=== PATIENT | female | born 1955 | race Caucasian/White ===

== ENCOUNTER 2018-11-19 21:15 | Inpatient (IN) | payer MEDICARE ==
[~2018-11-19] VITALS: Ht 167.6 cm; Wt 45.4 kg
[2018-11-19] MEDS ORDERED: SODIUM CHLORIDE 0.9% 1L BAG IV* STA (23:24)
[2018-11-19] MEDS ORDERED: VANCOMYCIN 1 GM (PMX) 250 ML IVPB ONE (23:30)
[2018-11-19] MEDS ORDERED: CEFEPIME 1GM/50 ML (PMX) 50 ML IVPB ONE (23:30)
[2018-11-19] MEDS ORDERED: ALBUTEROL 0.083% (NEB) 2.5 MG/3 ML AMP HHN STA (23:32)
--- NOTE | 2018-11-19 23:38 | ERD ---
ER Documentation Chief Complaint Chief Complaint Low O2 saturation LENDING CONSULTANT, BIBA HPI Patient is a 63-year-old female with respiratory failure who presents with shortness of breath. The symptoms started a few days ago. She was brought in by ambulance. She has no fevers. She was discharged from [facility] today and went to [facility] where they found her to have a low O2 saturation. She is a chronic trach vent patient. Upon review of old medical records this is the patient's first visit to the emergency department. ROS All systems reviewed and are negative except as per history of present illness. Allergies Allergies: Coded Allergies: Sulfa (Sulfonamide Antibiotics) (Verified Allergy, Unknown, 11/19/18) ciprofloxacin (Verified Allergy, Unknown, 11/19/18) epinephrine (Verified Allergy, Unknown, 11/19/18) lidocaine (Verified Allergy, Unknown, 11/19/18) lorazepam (Verified Allergy, Unknown, 11/19/18) procaine (Verified Allergy, Unknown, 11/19/18) PMhx/Soc History of Surgery: Yes (R lung sx, G-tube) Anesthesia Reaction: No Hx Psychiatric Problems: Yes (Depression) Hx Alcohol Use: No Hx Substance Use: No Hx Tobacco Use: No Smoking Status: Never smoker FmHx Family History: No diabetes Physical Exam Vitals Vital Signs Date Temp Pulse Resp B/P (MAP) Pulse Ox O2 O2 Flow FiO2 Time Delivery Rate 11/19/18 109 16 90/61 (71) 100 Mechanical 23:04 Ventilator Trach Collar 11/19/18 97.3 122 22 93/60 (71) 100 21:25 Physical Exam Const: Chronically ill Head: Atraumatic Eyes: Normal Conjunctiva ENT: Tracheostomy in place Neck: Full range of motion. No meningismus. Resp: Rhonchorous breath sounds bilaterally Cardio: Regular rate and rhythm, no murmurs Abd: Soft, non tender, non distended. Normal bowel sounds Skin: No petechiae or rashes Back: No midline or flank tenderness Ext: No cyanosis, or edema Neur: Awake and alert Psych: Normal Mood and Affect Result Diagram: 11/19/18212811/19/182128 Results 24 hrs Laboratory Tests Test 11/19/18 21:28 11/19/18 21:29 11/19/18 21:40 Bedside Glucose 113 mg/dL White Blood Count 18.7 10^3/ul Red Blood Count 3.21 10^6/ul Hemoglobin 10.0 g/dl Hematocrit 35.5 % Mean Corpuscular Volume 110.6 fl Mean Corpuscular 31.2 pg Hemoglobin Mean Corpuscular 28.2 g/dl Hemoglobin Concent Red Cell Distribution 13.7 % Width Platelet Count 401 10^3/UL Mean Platelet Volume 9.9 fl Immature Granulocytes % 1.400 % Neutrophils % 89.8 % Lymphocytes % 3.9 % Monocytes % 3.2 % Eosinophils % 1.3 % Basophils % 0.4 % Nucleated Red Blood Cells 0.0 /100WBC % Immature Granulocytes # 0.270 10^3/ul Neutrophils # 16.8 10^3/ul Lymphocytes # 0.7 10^3/ul Monocytes # 0.6 10^3/ul Eosinophils # 0.2 10^3/ul Basophils # 0.1 10^3/ul Nucleated Red Blood Cells 0.0 10^3/ul # Prothrombin Time 14.9 Sec Prothrombin Time Ratio 1.2 INR International 1.16 Normalized Ratio Activated 41.7 Sec Partial Thromboplast Time Sodium Level 144 mmol/L Potassium Level 4.3 mmol/L Chloride Level 95 mmol/L Carbon Dioxide Level 45 mmol/L Anion Gap 4 Blood Urea Nitrogen 36 mg/dl Creatinine 0.66 mg/dl Est Glomerular Filtrat > 60 mL/min Rate mL/min Glucose Level 114 mg/dl POC Venous Lactate 0.9 mmol/L Calcium Level 9.6 mg/dl Total Bilirubin 0.2 mg/dl Direct Bilirubin 0.00 mg/dl Indirect Bilirubin 0.2 mg/dl Aspartate Amino 29 IU/L Transf (AST/SGOT) Alanine 27 IU/L Aminotransferase (ALT/SGPT ) Alkaline Phosphatase 188 IU/L Troponin I < 0.012 ng/ml Total Protein 7.6 g/dl Albumin 3.1 g/dl Globulin 4.50 g/dl Albumin/Globulin Ratio 0.68 Blood Gas Specimen Source Blood arterial Arterial Blood Date Drawn 11/19/2018 11:10:25 PM Arterial Blood pH 7.351 (Temp corrected) Arterial Blood pCO2 85.9 mmhg (Temp correct) Arterial Blood pO2 310.5 mmHG (Temp corrected) Arterial Blood HCO3 46.5 mmol/L Arterial Blood Base Excess 17.8 mmol/L Arterial Blood 99.8 mmHG Oxygen Saturation Jon Test N/A Arterial Blood Gas LB Puncture Site Arterial 0.3 % Blood Carboxyhemoglobin Arterial Blood 0.2 % Methemoglobin Blood Gas A-a O2 316.6 mmHg Differential Oxyhemoglobin Percent 99.3 % Blood Gas Temperature 37.0 C Blood Gas Respiration Rate 16.0 Blood Gas Actual 23 Respiration Rate Blood Gas Modality VENT - AC FiO2 100.0 % Blood Gas Tidal Volume 450.0 mL Blood Gas Low PEEP Setting 5.0 cmH2O Blood Gas Inspiratory 33.0 Pressure Blood Gas Critical Value Carlos SPRINGER MD Read Back Blood Gas Notified Whom KM Blood Gas Notified Time 11/12/2018 11:26:25 PM Current Medications Medications Dose Sig/Porsche Start Time Status Last (Trade) Ordered Route PRN Stop Time Admin Dose Reason Admin Vancomycin 250 ml @ ONCE ONCE 11/19/18 HCl 125 mls/hr IVPB 23:30 11/20/18 01:29 Cefepime HCl 50 ml @ ONCE ONCE 11/19/18 11/19/18 100 mls/hr IVPB 23:30 23:32 11/19/18 23:59 Sodium 1,950 ml BOLUS OVER 2 11/19/18 DC 11/19/18 Chloride HOURS STAT 23:24 23:32 (NS) IV* 11/19/18 23:25 Albuterol 5 mg ONCE STAT 11/19/18 DC (Proventil HHN 23:32 0.083% (Neb)) 11/19/18 23:33 Ipratropium 0.5 mg ONCE ONCE 11/20/18 [place] HHN 00:00 (Atrovent 11/20/18 00:01 0.02% (Neb)) Procedures/MDM Chest X-ray 1V Interpreted by me: Soft Tissue: No acute abnormalities Bones: No acute abnormalities Mediastinum/Cardiac Silhouette/Lungs: Pneumonia, loculated pneumothorax of the right upper lung EKG read by me: Rate/Rhythm: Regular rate and rhythm at a normal rate Intervals: Normal Impression: No evidence of ischemia or arrhythmia Sepsis Documentation: Patient's infectious symptoms have not stabilized and the patient is at risk of rapid decompensation. The patient will be admitted for careful hydration, antibiotic therapy, and infectious source control. SEVERE SEPSIS CRITERIA: Infectious source: Pneumonia End organ damage indicated by: No endorgan damage at this time SEPSIS MANAGEMENT Time of recognition of sepsis: 2128. Time of recognition of severe sepsis: No severe sepsis at this time. Time of recognition of septic shock: No septic shock at this time. 3 HOUR BUNDLE Blood cultures x 2 before broad-spectrum antibiotics: Yes 30 ml/kg NS bolus completed Initial lactate 0.9 Repeat lactate pending SEPTIC SHOCK ASSESSMENT: No lactic acid > 4.0 No persistent hypotension (SBP < 90 or 40 mmHg drop, MAP < 65) despite 30 mL/kg IV fluid bolus VOLUME REASSESSMENT FOR SEPTIC SHOCK: No septic shock at this time PERSISTENT HYPOTENSION TREATMENT: Comfort care no Central line not Required Vasopressor started not required I considered further perfusion assessment with CVP measurement, SCVO2, bedside ultrasound volume assessment, passive leg raise, trial of further fluid bolus. And proceeded with 30 ml/kg fluid bolus of NSS, broad spectrum antibiotics, and admission. The patient will be admitted to the care of Dr. Peraza to a telemetry bed. I think the risk of putting a chest tube and at this time outweigh the benefits as it is a loculated small right upper lobe pneumothorax and she has had previous surgery on the right lung and I am concerned for possible adhesions of the lung to the chest wall. CRITICAL CARE Critical care time 35 minutes Emergent fluid management while maintaining close respiratory support. Provision of immediate and broad-spectrum antibiotic therapy. Simultaneous assessment for possible sources in order to direct targeted therapy. Consideration for invasive and chemical support to prevent cardiopulmonary collapse. Critical care time is independent of procedures performed. Departure Diagnosis: Primary Impression: Sepsis Sepsis type: sepsis due to unspecified organism Qualified Codes: A41.9 - Sepsis, unspecified organism Additional Impressions: Pneumonia Pneumonia type: due to unspecified organism Laterality: unspecified laterality Lung location: unspecified part of lung Qualified Codes: J18.9 - Pneumonia, unspecified organism Pneumothorax Pneumothorax type: unspecified pneumothorax Qualified Codes: J93.9 - Pneumothorax, unspecified Condition: Serious LIBIA SPRINGER MD November 19, 2018 23:38
[2018-11-20] VITALS (7 sets, daily range): BP systolic 154–171; BP diastolic 82–90; PULSE 99–108; RESP 20–26; Ht 167.6 cm; Wt 45.4 kg
[2018-11-20] MEDS ORDERED: ACETAMINOPHEN 325 MG TAB PO PRN
[2018-11-20] MEDS ORDERED: IPRATROPIUM (NEB) 0.5 MG/2.5 ML AMP HHN ONE
[2018-11-20] MEDS ORDERED: DEXTROSE 5%-0.45% NACL 1,000 ML IV SCH (01:01)
[2018-11-20] MEDS ORDERED: VANCOMYCIN IV PER PHARMACY XX SCH (01:30)
[2018-11-20] MEDS ORDERED: ONDANSETRON 4 MG INJ IV PRN ×3 (01:30→16:30)
[2018-11-20] MEDS ORDERED: ACETAMINOPHEN 650 MG SUPP PR PRN (01:30)
[2018-11-20] MEDS ORDERED: NACL 0.9% 3 ML SYG IV SCH (01:30)
[2018-11-20] MEDS ORDERED: ACET12.5 PO (03:10)
[2018-11-20] MEDS ORDERED: BUDE0.5A INHALATION (03:10)
[2018-11-20] MEDS ORDERED: ACET325S GTB (03:10)
[2018-11-20] MEDS ORDERED: BUSP10TA2 GTB (03:10)
[2018-11-20] MEDS: ALBUTEROL/IPRATROPIUM (NEB) 3 ML AMP HHN PRN ×6 (03:18→21:58)
[2018-11-20] MEDS ORDERED: FER325 GTB (03:42)
[2018-11-20] MEDS ORDERED: SERT50TA6 GTB (03:42)
[2018-11-20] MEDS ORDERED: IPRA3AMP29 INHALATION (03:42)
[2018-11-20] MEDS ORDERED: GUAI-158 GTB (03:42)
[2018-11-20] MEDS ORDERED: MELA1TAB GTB (03:42)
[2018-11-20] MEDS ORDERED: MONT10TA24 GTB (03:42)
[2018-11-20] MEDS ORDERED: CHLO118L3 TOP (03:42)
[2018-11-20] MEDS ORDERED: METO10TA92 GTB (03:42)
[2018-11-20] MEDS ORDERED: ZNO30OI TOP (03:42)
[2018-11-20] MEDS ORDERED: GLYC1TAB GTB (03:42)
[2018-11-20] MEDS ORDERED: METO-448 GTB (03:42)
[2018-11-20] MEDS ORDERED: GABA-526 GTB (03:42)
[2018-11-20] MEDS ORDERED: MULTI GTB (03:42)
[2018-11-20] MEDS ORDERED: LANS30CA GTB (03:42)
[2018-11-20] MEDS ORDERED: SERT25TA83 GTB (03:42)
[2018-11-20] MEDS ORDERED: INSU100V3 IJ (03:49)
--- NOTE | 2018-11-20 06:59 | HP ---
Date/Time of Note Date/Time of Note DATE: 11/20/18 TIME: 06:53 Assessment/Plan VTE Prophylaxis Pharmacological prophylaxis: heparin Lines/Catheters IV Catheter Type (from Nrsg): Saline Lock Assessment/Plan Assessment/Plan 63-year-old female with history of hypertension, insulin-dependent diabetes, COPD, depression, lung surgery/VATS for pneumothorax a year ago, G-tube placement, trach/vent dependent brought to the ER from SNF for hypoxia, now awaiting admission for hypercapnic and hypoxic respiratory failure. 1. Vent dependent hypoxic and hypercapnic respiratory failure -Bronchodilators, IV antibiotic, continue Bumex -Obtain chest CT -Pulmonary consult -Repeat ABG -Obtain records from [facility] (patient was just discharged from there and was sent to SNF when she became hypoxic). Also obtain VATS record from year ago -Follow-up culture results -BuSpar for anxiety 2. Hypertension: Adjust antihypertensive as needed. Hold home metoprolol for now given BP on the lower side 3. Insulin-dependent diabetes: Continue insulin 4. Anxiety/depression: Continue BuSpar and sertraline 5. History of pneumothorax status post VATS a year ago. -Patient also with a history of COPD in the past -See #1 6. Status post G-tube: Starting feeding after chest CT Result Diagram: 11/20/18 0357 11/20/18 0356 Results 24hrs Laboratory Tests Test 11/19/18 21:28 11/19/18 21:29 11/19/18 21:40 11/19/18 23:57 Bedside Glucose 113 White Blood 18.7 H Count Red Blood Count 3.21 L Hemoglobin 10.0 L Hematocrit 35.5 L Mean Corpuscular 110.6 H Volume Mean Corpuscular 31.2 Hemoglobin Mean Corpuscular 28.2 L Hemoglobin Kareen nt Red Cell 13.7 Distribution Width Platelet Count 401 Mean Platelet 9.9 Volume Immature 1.400 H Granulocytes % Neutrophils % 89.8 H Lymphocytes % 3.9 L Monocytes % 3.2 Eosinophils % 1.3 Basophils % 0.4 Nucleated Red 0.0 Blood Cells % Immature 0.270 H Granulocytes # Neutrophils # 16.8 H Lymphocytes # 0.7 L Monocytes # 0.6 Eosinophils # 0.2 Basophils # 0.1 Nucleated Red 0.0 Blood Cells # Prothrombin Time 14.9 Prothrombin Time 1.2 Ratio INR 1.16 International Normalized Ratio Activated 41.7 H Partial Thrombop last Time Sodium Level 144 Potassium Level 4.3 Chloride Level 95 L Carbon Dioxide 45 *H Level Anion Gap 4 L Blood Urea 36 H Nitrogen Creatinine 0.66 Est Glomerular > 60 Filtrat Rate mL/min Glucose Level 114 POC Venous 0.9 Lactate Calcium Level 9.6 Total Bilirubin 0.2 Direct Bilirubin 0.00 Indirect 0.2 Bilirubin Aspartate Amino 29 Transf (AST/SGOT ) Alanine 27 Aminotransferase (ALT/SGPT) Alkaline 188 H Phosphatase Troponin I < 0.012 Total Protein 7.6 Albumin 3.1 L Globulin 4.50 H Albumin/Globulin 0.68 Ratio Blood Gas Blood arterial Specimen Source Arterial Blood 11/19/2018 11:10 Date Drawn :25 PM Arterial Blood 7.351 pH (Temp corrected) Arterial Blood 85.9 *H pCO2 (Temp correct) Arterial Blood 310.5 H pO2 (Temp corrected) Arterial Blood 46.5 *H HCO3 Arterial Blood 17.8 H Base Excess Arterial Blood 99.8 H Oxygen Saturatio n Jon Test N/A Arterial Blood LB Gas Puncture Site Arterial 0.3 Blood Carboxyhem oglobin Arterial Blood 0.2 Methemoglobin Blood Gas A-a O2 316.6 H Differential Oxyhemoglobin 99.3 H Percent Blood Gas 37.0 Temperature Blood Gas 16.0 Respiration Rate Blood Gas Actual 23 Respiration Rate Blood Gas VENT - AC Modality FiO2 100.0 Blood Gas Tidal 450.0 Volume Blood Gas Low 5.0 PEEP Setting Blood Gas 33.0 Inspiratory Pressure Blood Gas Carlos SPRINGER MD Critical Value Read Back Blood Gas KM Notified Whom Blood Gas 11/12/2018 11:26 Notified Time :25 PM Lactic Acid 0.6 Level Test 11/20/18 02:08 11/20/18 03:00 11/20/18 03:56 11/20/18 03:57 Urine Color YELLOW Urine Clarity CLOUDY A Urine pH 6.0 Urine Specific 1.016 [place] Urine Ketones NEGATIVE Urine Nitrite NEGATIVE Urine Bilirubin NEGATIVE Urine NEGATIVE Urobilinogen Urine Leukocyte 1+ H Esterase Urine 2 Microscopic RBC Urine 6 H Microscopic WBC Urine Squamous FEW Epithelial Cells Urine Amorphous FEW A Crystals Urine Bacteria FEW A Urine Hemoglobin NEGATIVE Urine Glucose NEGATIVE Urine Total 1+ H Protein Blood Gas Blood arterial Specimen Source Arterial Blood 11/20/2018 2:50: Date Drawn 11 AM Arterial Blood 7.322 L pH (Temp corrected) Arterial Blood 79.2 H pCO2 (Temp correct) Arterial Blood 102.1 H pO2 (Temp corrected) Arterial Blood 40.1 *H HCO3 Arterial Blood 11.8 H Base Excess Arterial Blood 97.6 Oxygen Saturatio n Jon Test N/A Arterial Blood LB Gas Puncture Site Arterial 0.6 Blood Carboxyhem oglobin Arterial Blood 0.3 Methemoglobin Blood Gas A-a O2 238.6 H Differential Oxyhemoglobin 96.7 Percent Blood Gas 37.0 Temperature Blood Gas 16.0 Respiration Rate Blood Gas Actual 22 Respiration Rate Blood Gas VENT - AC Modality FiO2 60.0 Blood Gas Tidal 450.0 Volume Blood Gas Low 5.0 PEEP Setting Blood Gas 33.0 Inspiratory Pressure Blood Gas Yoana BROWN MD Critical Value Read Back Blood Gas Notified Whom Blood Gas 11/20/2018 3:10: Notified Time 37 AM Sodium Level 147 H Potassium Level 4.1 Chloride Level 103 Carbon Dioxide 38 H Level Anion Gap 6 Blood Urea 32 H Nitrogen Creatinine 0.49 Est Glomerular > 60 Filtrat Rate mL/min Glucose Level 95 Hemoglobin A1c 4.8 Lactic Acid 0.6 Level Calcium Level 9.1 Magnesium Level 1.8 Total Bilirubin 0.2 Direct Bilirubin 0.00 Indirect 0.2 Bilirubin Aspartate Amino 24 Transf (AST/SGOT ) Alanine 34 Aminotransferase (ALT/SGPT) Alkaline 139 H Phosphatase Total Protein 6.6 # Albumin 2.7 L Globulin 3.90 H Albumin/Globulin 0.69 Ratio White Blood 12.6 #H Count Red Blood Count 2.70 L Hemoglobin 8.3 L Hematocrit 30.0 L Mean Corpuscular 111.1 H Volume Mean Corpuscular 30.7 Hemoglobin Mean Corpuscular 27.7 L Hemoglobin Kareen nt Red Cell 14.1 Distribution Width Platelet Count 361 Mean Platelet 10.1 Volume Immature 1.200 H Granulocytes % Neutrophils % 85.4 H Lymphocytes % 7.7 L Monocytes % 4.4 Eosinophils % 1.0 Basophils % 0.3 Nucleated Red 0.0 Blood Cells % Immature 0.150 H Granulocytes # Neutrophils # 10.8 H Lymphocytes # 1.0 Monocytes # 0.6 Eosinophils # 0.1 Basophils # 0.0 Nucleated Red 0.0 Blood Cells # HPI/ROS Admit Date/Time Admit Date/Time Hx of Present Illness This is a 63-year-old female with history of COPD, depression, lung surgery/VATS (per patient for pneumothorax), trach/vent dependent, G-tube placement who was brought to the ER from SNF for hypoxia. Patient just got discharged from [facility] and when she got to SNF she was found to be hypoxic. Per EMS, oxygen saturation in the low 80s. She was brought to the ER with BVM by EMS. In the ER, ABG on 100% FiO2 shows a pH of 7.35, PCO2 86, PO2 310, bicarb 46. Chest x-ray shows right medial/lower chest resection with lung herniation, right apical pneumothorax, possibly chronic, diffuse interstitial opacity. Patient had a breathing treatment and antibiotic and repeat ABG shows a slight improvement in PCO2. PO2 102, but on 60% FiO2 as supposed to 100%. Patient diana ears somewhat anxious. She answers questions appropriately, but requires reading her lips. She said that she had surgery for pneumothorax a year ago and has been trach dependent since. She also stated that [employer] is what works for her for anxiety PMH/Family/Social Past Medical History Medical History: other (See HPI) Medications Current Medications Ondansetron HCl (Zofran Inj) 4 mg ER BRIDGE PRN IV NAUSEA/VOMITING; Start 11/20/18 at 00:00; Stop 11/20/18 at 23:59 Acetaminophen (Tylenol Tab) 650 mg ER BRIDGE PRN PO .MILD PAIN 1-3 OR TEMP; Start 11/20/18 at 00:00; Stop 11/20/18 at 23:59 Dextrose/Sodium Chloride 1,000 ml @ 70 mls/hr [id number] IV ; Start 11/20/18 at 01:01; Stop 11/20/18 at 09:00 IV Flush (NS 3 ml) 3 ml PER PROTOCOL IV ; Start 11/20/18 at 01:30 Ondansetron HCl (Zofran Inj) 4 mg Q6H PRN IV NAUSEA/VOMITING; Start 11/20/18 at 01:30 Acetaminophen (Tylenol Supp) 650 mg Q6H PRN ND .PAIN 1-3 OR TEMP; Start 11/20/18 at 01:30 Heparin Sodium (Porcine) (Heparin (5000 Units/1ml)) 5,000 unit Q12 SC ; Start 11/20/18 at 09:00 Albuterol/ Ipratropium (Duoneb) 3 ml Q2H RESP THERAPY PRN HHN SHORTNESS OF BREATH Last administered on 11/20/18at 05:00; Admin Dose 3 ML; Start 11/20/18 at 01:30 Cefepime HCl 50 ml @ 100 mls/hr ONCE ONCE IVPB ; Start 11/20/18 at 09:00; Stop 11/20/18 at 09:29 Vancomycin HCl (Vanco Iv Per Pharmacy) VANCOMYCIN PER PHARMACY PER PROTOCOL XX ; Start 11/20/18 at 01:30 Vancomycin/Sodium Chloride 250 ml @ 125 mls/hr Q12H IVPB ; Start 11/20/18 at 11:00 Coded Allergies: Sulfa (Sulfonamide Antibiotics) (Verified Allergy, Unknown, 11/19/18) ciprofloxacin (Verified Allergy, Unknown, 11/19/18) epinephrine (Verified Allergy, Unknown, 11/19/18) lidocaine (Verified Allergy, Unknown, 11/19/18) lorazepam (Verified Allergy, Unknown, 11/19/18) procaine (Verified Allergy, Unknown, 11/19/18) Past Surgical History Past Surgical Hx: other (See HPI) Family History Significant Family History: no pertinent family hx Social History Alcohol Use: none Smoking Status: Former smoker Drug Use: none Exam/Review of Systems Vital Signs Vitals Vital Signs Date Temp Pulse Resp B/P (MAP) Pulse Ox O2 O2 Flow FiO2 Time Delivery Rate 11/20/18 98.1 117 18 94/49 (64) 100 Mechanical 06:30 Ventilator Trach Collar 11/20/18 100 05:01 Exam Constitutional: other (Patient appears slightly anxious. She is trached and chronic vent) Head: normocephalic, atraumatic Eyes: EOMI, PERRL Respiratory: diminished breath sounds Cardiovascular: other (Tachycardic regular rhythm) Gastrointestinal: soft, other (G-tube in place) Extremities: normal pulses DARNELL BROWN MD November 20, 2018 06:58
[2018-11-20] MEDS ORDERED: HEPARIN 5,000 UNIT/1 ML VIAL SC SCH (09:00)
[2018-11-20] MEDS ORDERED: DEXTROSE 50% 50 ML SYRINGE IV PRN ×2 (09:00)
[2018-11-20] MEDS ORDERED: SERTRALINE 50 MG TAB GTB SCH (09:00)
[2018-11-20] MEDS ORDERED: GLUCOSE GEL 15 GRAM TUBE PO PRN ×2 (09:00)
[2018-11-20] MEDS ORDERED: GLUCOSE GEL 15 GRAM TUBE BUCCAL PRN (09:00)
[2018-11-20] MEDS ORDERED: GLUCAGON 1 MG INJ IM PRN (09:00)
[2018-11-20] MEDS: BUDESONIDE (NEB) 0.5MG/2ML AMP INH SCH ×2 (09:00→20:01)
[2018-11-20] MEDS ORDERED: CEFEPIME 1GM/50 ML (PMX) 50 ML IVPB ONE (09:00)
[2018-11-20] MEDS: CEFEPIME 1GM/50 ML (PMX) 50 ML IVPB SCH ×2 (09:59→21:31)
[2018-11-20] MEDS: INSULIN ASPART [NOVOLOG] 3 ML PEN SC SCH ×2 (12:00→18:00)
[2018-11-20] MEDS: LANSOPRAZOLE 30 MG CAP GTB SCH (12:22)
[2018-11-20] MEDS: VANCOMYCIN 750 MG (PMX) 250 ML IVPB SCH ×2 (12:23→23:25)
[2018-11-20] MEDS: SOD CHLORIDE 0.9% 1,000 ML IV SCH ×2 (15:53→21:32)
--- NOTE | 2018-11-20 16:06 | PN ---
Date/Time of Note Date/Time of Note DATE: 11/20/18 TIME: 16:03 Assessment/Plan VTE Prophylaxis SCD contraindicated: low risk/ambulating Pharmacological prophylaxis: LMWH Lines/Catheters IV Catheter Type (from Nrs): Saline Lock Assessment/Plan Hospital Course Assessment and plan 1. Respiratory distress, atypical chest pain dyspnea, rule out pneumonia. 2. Vent dependent respiratory failure, mod stable continue vent 3. Recent pneumothorax status post VATS procedure, follow-up on old records 4. Chest wall wound, continue wound care follow-up on old records 5. Chronic COPD? 6. Past tobacco use? 7. Type 2 diabetes 8. Hypertension 9. Debility 10. Dysphagia 11. PEG tube status for malnutrition S: follows commands. shortness of breath. denies chest pain, fever, nausea/ vomiting. denies challenges with tube feeds. O: Vss; st Physical exam No pallor adenopathy JVD Regular tachycardic normal no murmur rub gallop diminished bs bilaterally Hypotonia no edema negative Homans Result Diagram: 11/20/18 0357 11/20/18 0356 Results 24hrs Laboratory Tests Test 11/19/18 21:28 11/19/18 21:29 11/19/18 21:40 11/19/18 23:57 Bedside Glucose 113 White Blood 18.7 H Count Red Blood Count 3.21 L Hemoglobin 10.0 L Hematocrit 35.5 L Mean Corpuscular 110.6 H Volume Mean Corpuscular 31.2 Hemoglobin Mean Corpuscular 28.2 L Hemoglobin Kareen nt Red Cell 13.7 Distribution Width Platelet Count 401 Mean Platelet 9.9 Volume Immature 1.400 H Granulocytes % Neutrophils % 89.8 H Lymphocytes % 3.9 L Monocytes % 3.2 Eosinophils % 1.3 Basophils % 0.4 Nucleated Red 0.0 Blood Cells % Immature 0.270 H Granulocytes # Neutrophils # 16.8 H Lymphocytes # 0.7 L Monocytes # 0.6 Eosinophils # 0.2 Basophils # 0.1 Nucleated Red 0.0 Blood Cells # Prothrombin Time 14.9 Prothrombin Time 1.2 Ratio INR 1.16 International Normalized Ratio Activated 41.7 H Partial Thrombop last Time Sodium Level 144 Potassium Level 4.3 Chloride Level 95 L Carbon Dioxide 45 *H Level Anion Gap 4 L Blood Urea 36 H Nitrogen Creatinine 0.66 Est Glomerular > 60 Filtrat Rate mL/min Glucose Level 114 POC Venous 0.9 Lactate Calcium Level 9.6 Total Bilirubin 0.2 Direct Bilirubin 0.00 Indirect 0.2 Bilirubin Aspartate Amino 29 Transf (AST/SGOT ) Alanine 27 Aminotransferase (ALT/SGPT) Alkaline 188 H Phosphatase Troponin I < 0.012 Total Protein 7.6 Albumin 3.1 L Globulin 4.50 H Albumin/Globulin 0.68 Ratio Blood Gas Blood arterial Specimen Source Arterial Blood 11/19/2018 11:10 Date Drawn :25 PM Arterial Blood 7.351 pH (Temp corrected) Arterial Blood 85.9 *H pCO2 (Temp correct) Arterial Blood 310.5 H pO2 (Temp corrected) Arterial Blood 46.5 *H HCO3 Arterial Blood 17.8 H Base Excess Arterial Blood 99.8 H Oxygen Saturatio n Jon Test N/A Arterial Blood LB Gas Puncture Site Arterial 0.3 Blood Carboxyhem oglobin Arterial Blood 0.2 Methemoglobin Blood Gas A-a O2 316.6 H Differential Oxyhemoglobin 99.3 H Percent Blood Gas 37.0 Temperature Blood Gas 16.0 Respiration Rate Blood Gas Actual 23 Respiration Rate Blood Gas VENT - AC Modality FiO2 100.0 Blood Gas Tidal 450.0 Volume Blood Gas Low 5.0 PEEP Setting Blood Gas 33.0 Inspiratory Pressure Blood Gas Carlos SPRINGER MD Critical Value Read Back Blood Gas Notified Whom Blood Gas 11/12/2018 11:26 Notified Time :25 PM Lactic Acid 0.6 Level Test 11/20/18 02:08 11/20/18 03:00 11/20/18 03:56 11/20/18 03:57 Urine Color YELLOW Urine Clarity CLOUDY A Urine pH 6.0 Urine Specific 1.016 [place] Urine Ketones NEGATIVE Urine Nitrite NEGATIVE Urine Bilirubin NEGATIVE Urine NEGATIVE Urobilinogen Urine Leukocyte 1+ H Esterase Urine 2 Microscopic RBC Urine 6 H Microscopic WBC Urine Squamous FEW Epithelial Cells Urine Amorphous FEW A Crystals Urine Bacteria FEW A Urine Hemoglobin NEGATIVE Urine Glucose NEGATIVE Urine Total 1+ H Protein Blood Gas Blood arterial Specimen Source Arterial Blood 11/20/2018 2:50: Date Drawn 11 AM Arterial Blood 7.322 L pH (Temp corrected) Arterial Blood 79.2 H pCO2 (Temp correct) Arterial Blood 102.1 H pO2 (Temp corrected) Arterial Blood 40.1 *H HCO3 Arterial Blood 11.8 H Base Excess Arterial Blood 97.6 Oxygen Saturatio n Jon Test N/A Arterial Blood LB Gas Puncture Site Arterial 0.6 Blood Carboxyhem oglobin Arterial Blood 0.3 Methemoglobin Blood Gas A-a O2 238.6 H Differential Oxyhemoglobin 96.7 Percent Blood Gas 37.0 Temperature Blood Gas 16.0 Respiration Rate Blood Gas Actual 22 Respiration Rate Blood Gas VENT - AC Modality FiO2 60.0 Blood Gas Tidal 450.0 Volume Blood Gas Low 5.0 PEEP Setting Blood Gas 33.0 Inspiratory Pressure Blood Gas Yoana BROWN MD Critical Value Read Back Blood Gas Notified Whom Blood Gas 11/20/2018 3:10: Notified Time 37 AM Sodium Level 147 H Potassium Level 4.1 Chloride Level 103 Carbon Dioxide 38 H Level Anion Gap 6 Blood Urea 32 H Nitrogen Creatinine 0.49 Est Glomerular > 60 Filtrat Rate mL/min Glucose Level 95 Hemoglobin A1c 4.8 Lactic Acid 0.6 Level Calcium Level 9.1 Magnesium Level 1.8 Total Bilirubin 0.2 Direct Bilirubin 0.00 Indirect 0.2 Bilirubin Aspartate Amino 24 Transf (AST/SGOT ) Alanine 34 Aminotransferase (ALT/SGPT) Alkaline 139 H Phosphatase Total Protein 6.6 # Albumin 2.7 L Globulin 3.90 H Albumin/Globulin 0.69 Ratio White Blood 12.6 #H Count Red Blood Count 2.70 L Hemoglobin 8.3 L Hematocrit 30.0 L Mean Corpuscular 111.1 H Volume Mean Corpuscular 30.7 Hemoglobin Mean Corpuscular 27.7 L Hemoglobin Kareen nt Red Cell 14.1 Distribution Width Platelet Count 361 Mean Platelet 10.1 Volume Immature 1.200 H Granulocytes % Neutrophils % 85.4 H Lymphocytes % 7.7 L Monocytes % 4.4 Eosinophils % 1.0 Basophils % 0.3 Nucleated Red 0.0 Blood Cells % Immature 0.150 H Granulocytes # Neutrophils # 10.8 H Lymphocytes # 1.0 Monocytes # 0.6 Eosinophils # 0.1 Basophils # 0.0 Nucleated Red 0.0 Blood Cells # Test 11/20/18 15:49 Bedside Glucose 113 Exam/Review of Systems Exam Vitals Vital Signs Date Temp Pulse Resp B/P (MAP) Pulse Ox O2 O2 Flow FiO2 Time Delivery Rate 11/20/18 95 20 98 50 14:45 11/20/18 119/74 Mechanical 10:45 (89) Ventilator Trach Collar 11/20/18 98.9 07:30 Results Results 24hrs Laboratory Tests Test 11/19/18 21:28 11/19/18 21:29 11/19/18 21:40 11/19/18 23:57 Bedside Glucose 113 White Blood 18.7 H Count Red Blood Count 3.21 L Hemoglobin 10.0 L Hematocrit 35.5 L Mean Corpuscular 110.6 H Volume Mean Corpuscular 31.2 Hemoglobin Mean Corpuscular 28.2 L Hemoglobin Kareen nt Red Cell 13.7 Distribution Width Platelet Count 401 Mean Platelet 9.9 Volume Immature 1.400 H Granulocytes % Neutrophils % 89.8 H Lymphocytes % 3.9 L Monocytes % 3.2 Eosinophils % 1.3 Basophils % 0.4 Nucleated Red 0.0 Blood Cells % Immature 0.270 H Granulocytes # Neutrophils # 16.8 H Lymphocytes # 0.7 L Monocytes # 0.6 Eosinophils # 0.2 Basophils # 0.1 Nucleated Red 0.0 Blood Cells # Prothrombin Time 14.9 Prothrombin Time 1.2 Ratio INR 1.16 International Normalized Ratio Activated 41.7 H Partial Thrombop last Time Sodium Level 144 Potassium Level 4.3 Chloride Level 95 L Carbon Dioxide 45 *H Level Anion Gap 4 L Blood Urea 36 H Nitrogen Creatinine 0.66 Est Glomerular > 60 Filtrat Rate mL/min Glucose Level 114 POC Venous 0.9 Lactate Calcium Level 9.6 Total Bilirubin 0.2 Direct Bilirubin 0.00 Indirect 0.2 Bilirubin Aspartate Amino 29 Transf (AST/SGOT ) Alanine 27 Aminotransferase (ALT/SGPT) Alkaline 188 H Phosphatase Troponin I < 0.012 Total Protein 7.6 Albumin 3.1 L Globulin 4.50 H Albumin/Globulin 0.68 Ratio Blood Gas Blood arterial Specimen Source Arterial Blood 11/19/2018 11:10 Date Drawn :25 PM Arterial Blood 7.351 pH (Temp corrected) Arterial Blood 85.9 *H pCO2 (Temp correct) Arterial Blood 310.5 H pO2 (Temp corrected) Arterial Blood 46.5 *H HCO3 Arterial Blood 17.8 H Base Excess Arterial Blood 99.8 H Oxygen Saturatio n Jon Test N/A Arterial Blood LB Gas Puncture Site Arterial 0.3 Blood Carboxyhem oglobin Arterial Blood 0.2 Methemoglobin Blood Gas A-a O2 316.6 H Differential Oxyhemoglobin 99.3 H Percent Blood Gas 37.0 Temperature Blood Gas 16.0 Respiration Rate Blood Gas Actual 23 Respiration Rate Blood Gas VENT - AC Modality FiO2 100.0 Blood Gas Tidal 450.0 Volume Blood Gas Low 5.0 PEEP Setting Blood Gas 33.0 Inspiratory Pressure Blood Gas Carlos SPRINGER MD Critical Value Read Back Blood Gas Notified Whom Blood Gas 11/12/2018 11:26 Notified Time :25 PM Lactic Acid 0.6 Level Test 11/20/18 02:08 11/20/18 03:00 11/20/18 03:56 11/20/18 03:57 Urine Color YELLOW Urine Clarity CLOUDY A Urine pH 6.0 Urine Specific 1.016 [place] Urine Ketones NEGATIVE Urine Nitrite NEGATIVE Urine Bilirubin NEGATIVE Urine NEGATIVE Urobilinogen Urine Leukocyte 1+ H Esterase Urine 2 Microscopic RBC Urine 6 H Microscopic WBC Urine Squamous FEW Epithelial Cells Urine Amorphous FEW A Crystals Urine Bacteria FEW A Urine Hemoglobin NEGATIVE Urine Glucose NEGATIVE Urine Total 1+ H Protein Blood Gas Blood arterial Specimen Source Arterial Blood 11/20/2018 2:50: Date Drawn 11 AM Arterial Blood 7.322 L pH (Temp corrected) Arterial Blood 79.2 H pCO2 (Temp correct) Arterial Blood 102.1 H pO2 (Temp corrected) Arterial Blood 40.1 *H HCO3 Arterial Blood 11.8 H Base Excess Arterial Blood 97.6 Oxygen Saturatio n Jon Test N/A Arterial Blood LB Gas Puncture Site Arterial 0.6 Blood Carboxyhem oglobin Arterial Blood 0.3 Methemoglobin Blood Gas A-a O2 238.6 H Differential Oxyhemoglobin 96.7 Percent Blood Gas 37.0 Temperature Blood Gas 16.0 Respiration Rate Blood Gas Actual 22 Respiration Rate Blood Gas VENT - AC Modality FiO2 60.0 Blood Gas Tidal 450.0 Volume Blood Gas Low 5.0 PEEP Setting Blood Gas 33.0 Inspiratory Pressure Blood Gas Yoana BROWN MD Critical Value Read Back Blood Gas Notified Whom Blood Gas 11/20/2018 3:10: Notified Time 37 AM Sodium Level 147 H Potassium Level 4.1 Chloride Level 103 Carbon Dioxide 38 H Level Anion Gap 6 Blood Urea 32 H Nitrogen Creatinine 0.49 Est Glomerular > 60 Filtrat Rate mL/min Glucose Level 95 Hemoglobin A1c 4.8 Lactic Acid 0.6 Level Calcium Level 9.1 Magnesium Level 1.8 Total Bilirubin 0.2 Direct Bilirubin 0.00 Indirect 0.2 Bilirubin Aspartate Amino 24 Transf (AST/SGOT ) Alanine 34 Aminotransferase (ALT/SGPT) Alkaline 139 H Phosphatase Total Protein 6.6 # Albumin 2.7 L Globulin 3.90 H Albumin/Globulin 0.69 Ratio White Blood 12.6 #H Count Red Blood Count 2.70 L Hemoglobin 8.3 L Hematocrit 30.0 L Mean Corpuscular 111.1 H Volume Mean Corpuscular 30.7 Hemoglobin Mean Corpuscular 27.7 L Hemoglobin Kareen nt Red Cell 14.1 Distribution Width Platelet Count 361 Mean Platelet 10.1 Volume Immature 1.200 H Granulocytes % Neutrophils % 85.4 H Lymphocytes % 7.7 L Monocytes % 4.4 Eosinophils % 1.0 Basophils % 0.3 Nucleated Red 0.0 Blood Cells % Immature 0.150 H Granulocytes # Neutrophils # 10.8 H Lymphocytes # 1.0 Monocytes # 0.6 Eosinophils # 0.1 Basophils # 0.0 Nucleated Red 0.0 Blood Cells # Test 11/20/18 15:49 Bedside Glucose 113 Medications Medication Current Medications Acetaminophen (Tylenol Tab) 650 mg ER BRIDGE PRN PO .MILD PAIN 1-3 OR TEMP; Start 11/20/18 at 00:00; Stop 11/20/18 at 23:59 IV Flush (NS 3 ml) 3 ml PER PROTOCOL IV ; Start 11/20/18 at 01:30 Ondansetron HCl (Zofran Inj) 4 mg Q6H PRN IV NAUSEA/VOMITING; Start 11/20/18 at 01:30 Acetaminophen (Tylenol Supp) 650 mg Q6H PRN [place] .PAIN 1-3 OR TEMP; Start 11/20/18 at 01:30 Heparin Sodium (Porcine) (Heparin (5000 Units/1ml)) 5,000 unit Q12 SC Last administered on 11/20/18at 09:57; Admin Dose 5,000 UNIT; Start 11/20/18 at 09:00 Albuterol/ Ipratropium (Duoneb) 3 ml Q2H RESP THERAPY PRN HHN SHORTNESS OF BREATH Last administered on 11/20/18at 15:28; Admin Dose 3 ML; Start 11/20/18 at 01:30 Vancomycin HCl (Vanco Iv Per Pharmacy) VANCOMYCIN PER PHARMACY PER PROTOCOL XX ; Start 11/20/18 at 01:30 Vancomycin/Sodium Chloride 250 ml @ 125 mls/hr Q12H IVPB Last administered on 11/20/18at 12:23; Admin Dose 125 MLS/HR; Start 11/20/18 at 11:00 Budesonide (Pulmicort (Neb)) 0.5 mg Q12 INH ; Start 11/20/18 at 09:00 Buspirone HCl (Buspar) 10 mg BID PRN GTB TID; Start 11/20/18 at 08:30 Lansoprazole (Prevacid) 30 mg DAILY@0600 GTB Last administered on 11/20/18at 12:22; Admin Dose 30 MG; Start 11/20/18 at 09:00 Sertraline HCl (Zoloft) 50 mg DAILY GTB Last administered on 11/20/18at 12:22; Admin Dose 50 MG; Start 11/20/18 at 09:00 Diagnostic Test (Pha) (Accu-Chek) 1 ea 02 XX ; Start 11/21/18 at 02:00 Insulin Aspart (Novolog Insulin Pen) NOVOLOG *MILD* ALGORI... Q6 SC ; Start 11/20/18 at 12:00 Cefepime HCl 50 ml @ 100 mls/hr Q12 IVPB Last administered on 11/20/18at 09:59; Admin Dose 100 MLS/HR; Start 11/20/18 at 09:00 Miscellaneous Information 1 ea NOTE XX ; Start 11/20/18 at 09:00 Glucose (Glutose) 15 gm Q15M PRN PO DECREASED GLUCOSE; Start 11/20/18 at 09:00 Glucose (Glutose) 22.5 gm Q15M PRN PO DECREASED GLUCOSE; Start 11/20/18 at 09:00 Dextrose (D50w Syringe) 25 ml Q15M PRN IV DECREASED GLUCOSE; Start 11/20/18 at 09:00 Dextrose (D50w Syringe) 50 ml Q15M PRN IV DECREASED GLUCOSE; Start 11/20/18 at 09:00 Glucagon (Glucagen) 1 mg Q15M PRN IM DECREASED GLUCOSE; Start 11/20/18 at 09:00 Glucose (Glutose) 15 gm Q15M PRN BUCCAL DECREASED GLUCOSE; Start 11/20/18 at 09:00 Sodium Chloride 1,000 ml @ 125 mls/hr Q8H IV Last administered on 11/20/18at 15:53; Admin Dose 125 MLS/HR; Start 11/20/18 at 13:00 Miscellaneous Information (*Rx Drug Level Order Reminder*) 1 1000 ONCE XX ; Start 11/21/18 at 10:00; Stop 11/21/18 at 10:01 MIRNA SOMMER MD November 20, 2018 16:06
[2018-11-20] MEDS ORDERED: LACTOBACILLUS RHAMNOSUS CAP PO ONE (16:30)
[2018-11-20] MEDS ORDERED: LORAZEPAM 2 MG INJ IV PRN (16:30)
[2018-11-20] MEDS ORDERED: GUAIFENESIN/DM 5ML CUP PO PRN (16:30)
[2018-11-20] MEDS: BUSPIRONE 10 MG TAB GTB PRN (17:23)
[2018-11-20] MEDS: MONTELUKAST 10 MG TAB GTB SCH (21:31)
[2018-11-20] MEDS: GABAPENTIN 300 MG CAP GTB SCH (21:31)
[2018-11-20] MEDS: GLYCOPYRROLATE 1 MG TAB GTB SCH (21:45)
[2018-11-21] VITALS (23 sets, daily range): BP systolic 94–162; BP diastolic 55–82; PULSE 73–113; RESP 17–23
[2018-11-21] MEDS ORDERED: HALOPERIDOL 5 MG INJ IM ONE (01:00)
[2018-11-21] MEDS: IPRATROPIUM (NEB) 0.5 MG/2.5 ML AMP HHN SCH ×4 (01:19→23:29)
[2018-11-21] MEDS: ACCU-CHEK XX SCH (02:00)
[2018-11-21] MEDS: ALBUTEROL/IPRATROPIUM (NEB) 3 ML AMP HHN PRN ×3 (04:24→21:59)
[2018-11-21] MEDS: INSULIN ASPART [NOVOLOG] 3 ML PEN SC SCH ×4 (06:00→17:35)
[2018-11-21] MEDS: SOD CHLORIDE 0.9% 1,000 ML IV SCH ×3 (07:25→22:15)
[2018-11-21] MEDS: LANSOPRAZOLE 30 MG CAP GTB SCH (07:26)
[2018-11-21] MEDS: CEFEPIME 1GM/50 ML (PMX) 50 ML IVPB SCH ×2 (08:44→21:09)
[2018-11-21] MEDS: BUDESONIDE (NEB) 0.5MG/2ML AMP INH SCH ×2 (08:46→20:27)
[2018-11-21] MEDS: GABAPENTIN 300 MG CAP GTB SCH ×2 (08:48→21:10)
[2018-11-21] MEDS: ZINC OXIDE 20% 30 GM OINT TOP SCH (08:48)
[2018-11-21] MEDS: GLYCOPYRROLATE 1 MG TAB GTB SCH ×2 (08:48→17:36)
[2018-11-21] MEDS: SERTRALINE 50 MG TAB GTB SCH (08:49)
--- NOTE | 2018-11-21 10:32 | CONS ---
Assessment/Plan Assessment/Plan Assessment/Plan (Daily) Ventilator setting; assist control of 14, tidal volume 500, PEEP of 5, 80% FiO2. CT chest as well as chest x-ray were reviewed. Assessment and recommendations; 1. Patient admitted with severe hypercapnic respiratory failure due to end- stage lung disease. 2. Status post extensive right VATS with severe volume loss and fibrotic and emphysematous changes. There is packing material placed in the right chest cavity. 3. Advanced encephalopathy. 4. VDRF. 5. History of diabetes and hypertension. Continue current supportive care. Wean down FiO2. Prognosis is very poor. Consultation Date/Type/Reason Admit Date/Time Date of Consultation: November 21, 2018 Type of Consult Pulmonary Patient is a 63-year-old male who has [facility] with [facility]emia. Patient has a history of right VATS surgery with severe volume loss on the right side. Patient also has advanced encephalopathy and was unresponsive at examination. Patient however did not appear to be in any distress. Past medical history; 1. History of VDRF 2. Tracheostomy and G-tube placement. 3. Extensive right VATS. 4. Severe COPD with bullous emphysema. 5. Pulmonary fibrosis. 6. Hypertension and diabetes. 7. Chronic anemia. Medications; reviewed. Allergies; as outlined above. Social history, family history, occupational history is not available. Review of system; unable to be obtained. General exam; elderly male, on ventilator via tracheostomy, unresponsive, currently in no distress. Date/Time of Note DATE: 11/21/18 TIME: 10:28 Past Medical History Medical History: other (See HPI) Home Meds Reported Medications Insulin Regular, Human (Humulin R) 100 Unit/1 Ml Vial, 0 IJ SS, VIAL IF BS>400,GIVE SCHEDULED INSULIN CALL PRESCRIBER, IF <70 SEE HYPOGLYCEMIA PROTOCOL: IF BS 71-150=0 unit 151-200= 2units; 201-250=4 units; 251-300=6units; 301-350= 8units; 351-400= 10units; 11/20/18 Zinc Oxide* (Zinc Oxide*) 20%-30GM Oint, 1 APPLIC TOP DAILY, TUB 11/20/18 Sertraline Hcl* (Sertraline Hcl*) 50 Mg Tablet, 50 MG GTB DAILY, #30 TAB 11/20/18 Sertraline Hcl* (Sertraline Hcl*) 25 Mg Tablet, 25 MG GTB DAILY, #30 TAB 11/20/18 Multivitamins* (Theragran*) 1 Tab Tab, 1 TAB GTB DAILY, TAB 11/20/18 Montelukast Sodium* (Montelukast Sodium*) 10 Mg Tablet, 10 MG GTB QHS, #30 TAB 11/20/18 Metoprolol Tartrate* (Lopressor*) 25 Mg Tab, 12.5 MG GTB TID, #60 TAB HOLD SBP<110 OR HR<60, 11/20/18 Metoclopramide* (Reglan*) 10 Mg Tablet, 10 MG GTB TID, TAB 11/20/18 Melatonin/Pyridoxine (Melatonin 5 mg Tablet) 1 Each Tablet, 1 EACH GTB, TAB 11/20/18 Lansoprazole* (Lansoprazole*) 30 Mg Capsule.dr, 30 MG GTB DAILY, CAP 11/20/18 Ipratropium-Albuterol (Ipratropium-Albuterol) 0.5-3 Mg/3 Ml Ampul.neb, 3 ML INHALATION Q6, #30 VIAL 11/20/18 Guaifenesin/Dextromethorphan* (Guaifenesin* DM) 1 Each Tablet, 1 TAB GTB Q12, TAB.SA 11/20/18 Glycopyrrolate* (Glycopyrrolate*) 1 Mg Tablet, 1 MG GTB BID WITH MEALS, TAB 11/20/18 Gabapentin* (Gabapentin*) 600 Mg Tablet, 600 MG GTB BID, #60 TAB 11/20/18 Ferrous Sulfate* (Ferrous Sulfate*) 325 Mg Tabec, 325 MG GTB TID, TAB 11/20/18 Chlorhexidine Gluconate* (Chlorhexidine Gluconate*) 118 Ml Liquid, 15 ML TOP Q12H, ML 11/20/18 Buspirone Hcl* (Buspirone Hcl*) 10 Mg Tab, 10 MG GTB BID PRN for TID, TAB 11/20/18 Budesonide* (Budesonide*) 0.5 Mg/2 Ml Ampul.neb, 0.5 MG INHALATION Q12, AMP 11/20/18 Acetaminophen-Codeine* (Acetaminophen-Codeine*) 300-30 Mg/12.5 Ml Solution, 12.5 ML PO Q4H PRN for PAIN, ML 11/20/18 Acetaminophen* (Acetaminophen* Susp) 325 Mg/10.15 Ml Solution, 650 MG GTB Q6H for FOR WOUND CARE, ML 11/20/18 Medications Current Medications IV Flush (NS 3 ml) 3 ml PER PROTOCOL IV ; Start 11/20/18 at 01:30 Acetaminophen (Tylenol Supp) 650 mg Q6H PRN [place] .PAIN 1-3 OR TEMP; Start 11/20/18 at 01:30 Albuterol/ Ipratropium (Duoneb) 3 ml Q2H RESP THERAPY PRN HHN SHORTNESS OF BREATH Last administered on 11/21/18at 04:24; Admin Dose 3 ML; Start 11/20/18 at 01:30 Vancomycin HCl (Vanco Iv Per Pharmacy) VANCOMYCIN PER PHARMACY PER PROTOCOL XX ; Start 11/20/18 at 01:30 Vancomycin/Sodium Chloride 250 ml @ 125 mls/hr Q12H IVPB Last administered on 11/20/18at 23:25; Admin Dose 125 MLS/HR; Start 11/20/18 at 11:00 Budesonide (Pulmicort (Neb)) 0.5 mg Q12 INH Last administered on 11/21/18at 08:46; Admin Dose 0.5 MG; Start 11/20/18 at 09:00 Buspirone HCl (Buspar) 10 mg BID PRN GTB TID Last administered on 11/20/18at 17:23; Admin Dose 10 MG; Start 11/20/18 at 08:30 Lansoprazole (Prevacid) 30 mg DAILY@0600 GTB Last administered on 11/21/18at 07:26; Admin Dose 30 MG; Start 11/20/18 at 09:00 Diagnostic Test (Pha) (Accu-Chek) 1 ea 02 XX ; Start 11/21/18 at 02:00 Insulin Aspart (Novolog Insulin Pen) NOVOLOG *MILD* ALGORI... Q6 SC ; Start 11/20/18 at 12:00 Cefepime HCl 50 ml @ 100 mls/hr Q12 IVPB Last administered on 11/21/18at 08:44; Admin Dose 100 MLS/HR; Start 11/20/18 at 09:00 Miscellaneous Information 1 ea NOTE XX ; Start 11/20/18 at 09:00 Glucose (Glutose) 15 gm Q15M PRN PO DECREASED GLUCOSE; Start 11/20/18 at 09:00 Glucose (Glutose) 22.5 gm Q15M PRN PO DECREASED GLUCOSE; Start 11/20/18 at 09:00 Dextrose (D50w Syringe) 25 ml Q15M PRN IV DECREASED GLUCOSE; Start 11/20/18 at 09:00 Dextrose (D50w Syringe) 50 ml Q15M PRN IV DECREASED GLUCOSE; Start 11/20/18 at 09:00 Glucagon (Glucagen) 1 mg Q15M PRN IM DECREASED GLUCOSE; Start 11/20/18 at 09:00 Glucose (Glutose) 15 gm Q15M PRN BUCCAL DECREASED GLUCOSE; Start 11/20/18 at 09:00 Sodium Chloride 1,000 ml @ 125 mls/hr Q8H IV Last administered on 11/21/18 07:25; Admin Dose 125 MLS/HR; Start 11/20/18 at 13:00 Ondansetron HCl (Zofran Inj) 4 mg Q4 PRN IV NAUSEA/VOMITING Last administered on 11/21/18 09:11; Admin Dose 4 MG; Start 11/20/18 at 16:30 Guaifenesin/ Dextromethorphan (Robitussin Dm Liquid Cup) 10 ml Q4 PRN PO COUGH; Start 11/20/18 at 16:30 Ipratropium Lillian (Atrovent 0.02% (Neb)) 0.5 mg Q8H RESP THERAPY HHN Last administered on 11/21/18 08:46; Admin Dose 0.5 MG; Start 11/21/18 at 00:00 Gabapentin (Neurontin) 600 mg BID GTB Last administered on 11/21/18 08:48; Admin Dose 600 MG; Start 11/20/18 at 21:00 Glycopyrrolate (Robinul) 1 mg BID WITH MEALS GTB Last administered on 11/21/18 08:48; Admin Dose 1 MG; Start 11/20/18 at 19:00 Montelukast Sodium (Singulair) 10 mg QHS GTB Last administered on 11/20/18 21:31; Admin Dose 10 MG; Start 11/20/18 at 21:00 Sertraline HCl (Zoloft) 25 mg DAILY GTB Last administered on 5/26/19at 08:49; Admin Dose 25 MG; Start 11/21/18 at 09:00 Zinc Oxide (Zinc Oxide Oint) 1 applic DAILY TOP Last administered on 11/21/18at 08:48; Admin Dose 1 APPLIC; Start 11/21/18 at 09:00 Allergies: Coded Allergies: Sulfa (Sulfonamide Antibiotics) (Verified Allergy, Unknown, 11/19/18) ciprofloxacin (Verified Allergy, Unknown, 11/19/18) epinephrine (Verified Allergy, Unknown, 11/19/18) lidocaine (Verified Allergy, Unknown, 11/19/18) lorazepam (Verified Allergy, Unknown, 11/19/18) procaine (Verified Allergy, Unknown, 11/19/18) Past Surgical History Past Surgical Hx: other (See HPI) Social History Alcohol Use: none Smoking Status: Heavy tobacco smoker Drug Use: none Exam/Review of Systems Exam Vitals Vital Signs Date Temp Pulse Resp B/P (MAP) Pulse Ox O2 O2 Flow FiO2 Time Delivery Rate 11/21/18 110 20 100 50 09:16 11/21/18 97.8 94/55 (68) 08:00 11/20/18 Ambu Bag 18:30 Mechanical Ventilator Trach Collar Intake and Output 11/20/18 11/20/18 11/21/18 1515:00 23:00 07:00 IntakeIntake Total 540 ml BalanceBalance 540 ml Exam H ENT exam; supple neck, no JVD. No lymphadenopathy. Midline trachea. Tracheostomy in place. Insertion site is clean. Patient has carious teeth. Chest exam; diminished breath sounds throughout. S1-S2 audible, no murmurs. Regular rhythm. Abdomen exam; soft, no organomegaly. G-tube in place. Bowel sounds audible. Extremity exam; no peripheral edema. Patient does have multiple flexion contractures. CURVE CLEANER exam; patient remains unresponsive. Results Result Diagram: 11/21/18 0511/21/18 05 Results 24hrs Laboratory Tests Test 11/20/18 15:49 11/20/18 21:29 11/21/18 05:20 11/21/18 07:13 Bedside Glucose 113 85 91 White Blood Count 11.1 H Red Blood Count 2.54 L Hemoglobin 7.8 L Hematocrit 27.7 L Mean Corpuscular 109.1 H Volume Mean Corpuscular 30.7 Hemoglobin Mean Corpuscular 28.2 L Hemoglobin Concent Red Cell 13.7 Distribution Width Platelet Count 371 Mean Platelet Volume 10.6 H Immature 0.700 H Granulocytes % Neutrophils % 85.2 H Lymphocytes % 7.6 L Monocytes % 4.9 Eosinophils % 1.2 Basophils % 0.4 Nucleated Red Blood 0.0 Cells % Immature 0.080 H Granulocytes # Neutrophils # 9.5 H Lymphocytes # 0.8 Monocytes # 0.6 Eosinophils # 0.1 Basophils # 0.1 Nucleated Red Blood 0.0 Cells # Prothrombin Time 15.3 H Prothrombin Time 1.2 Ratio INR International 1.20 Normalized Ratio Sodium Level 145 H Potassium Level 3.6 Chloride Level 104 Carbon Dioxide Level 39 H Anion Gap 2 L Blood Urea Nitrogen 33 H Creatinine 0.52 Est Glomerular > 60 Filtrat Rate mL/min Glucose Level 92 Hemoglobin A1c 5.1 Calcium Level 9.1 Phosphorus Level 3.1 Magnesium Level 1.8 Total Bilirubin 0.2 Direct Bilirubin 0.00 Indirect Bilirubin 0.2 Aspartate Amino 34 Transf (AST/SGOT) Alanine 30 Aminotransferase (AL T/SGPT) Alkaline Phosphatase 118 Troponin I < 0.012 Total Protein 6.0 L Albumin 2.6 L Globulin 3.40 H Albumin/Globulin 0.76 Ratio Vitamin B12 Level 884 Folate > 20.0 H Procalcitonin 0.32 H Thyroid Stimulating 1.080 Hormone (TSH) Medications Medication Current Medications IV Flush (NS 3 ml) 3 ml PER PROTOCOL IV ; Start 11/20/18 at 01:30 Acetaminophen (Tylenol Supp) 650 mg Q6H PRN [place] .PAIN 1-3 OR TEMP; Start 11/20/18 at 01:30 Albuterol/ Ipratropium (Duoneb) 3 ml Q2H RESP THERAPY PRN HHN SHORTNESS OF BREATH Last administered on 11/21/18at 04:24; Admin Dose 3 ML; Start 11/20/18 at 01:30 Vancomycin HCl (Vanco Iv Per Pharmacy) VANCOMYCIN PER PHARMACY PER PROTOCOL XX ; Start 11/20/18 at 01:30 Vancomycin/Sodium Chloride 250 ml @ 125 mls/hr Q12H IVPB Last administered on 11/20/18at 23:25; Admin Dose 125 MLS/HR; Start 11/20/18 at 11:00 Budesonide (Pulmicort (Neb)) 0.5 mg Q12 INH Last administered on 11/21/18at 08:46; Admin Dose 0.5 MG; Start 11/20/18 at 09:00 Buspirone HCl (Buspar) 10 mg BID PRN GTB TID Last administered on 11/20/18at 17:23; Admin Dose 10 MG; Start 11/20/18 at 08:30 Lansoprazole (Prevacid) 30 mg DAILY@0600 GTB Last administered on 11/21/18at 07:26; Admin Dose 30 MG; Start 11/20/18 at 09:00 Diagnostic Test (Pha) (Accu-Chek) 1 ea 02 XX ; Start 11/21/18 at 02:00 Insulin Aspart (Novolog Insulin Pen) NOVOLOG *MILD* ALGORI... Q6 SC ; Start 11/20/18 at 12:00 Cefepime HCl 50 ml @ 100 mls/hr Q12 IVPB Last administered on 11/21/18at 08:44; Admin Dose 100 MLS/HR; Start 11/20/18 at 09:00 Miscellaneous Information 1 ea NOTE XX ; Start 11/20/18 at 09:00 Glucose (Glutose) 15 gm Q15M PRN PO DECREASED GLUCOSE; Start 11/20/18 at 09:00 Glucose (Glutose) 22.5 gm Q15M PRN PO DECREASED GLUCOSE; Start 11/20/18 at 09:00 Dextrose (D50w Syringe) 25 ml Q15M PRN IV DECREASED GLUCOSE; Start 11/20/18 at 09:00 Dextrose (D50w Syringe) 50 ml Q15M PRN IV DECREASED GLUCOSE; Start 11/20/18 at 09:00 Glucagon (Glucagen) 1 mg Q15M PRN IM DECREASED GLUCOSE; Start 11/20/18 at 09:00 Glucose (Glutose) 15 gm Q15M PRN BUCCAL DECREASED GLUCOSE; Start 11/20/18 at 09:00 Sodium Chloride 1,000 ml @ 125 mls/hr Q8H IV Last administered on 11/21/18at 07:25; Admin Dose 125 MLS/HR; Start 11/20/18 at 13:00 Ondansetron HCl (Zofran Inj) 4 mg Q4 PRN IV NAUSEA/VOMITING Last administered on 11/21/18at 09:11; Admin Dose 4 MG; Start 11/20/18 at 16:30 Guaifenesin/ Dextromethorphan (Robitussin Dm Liquid Cup) 10 ml Q4 PRN PO COUGH; Start 11/20/18 at 16:30 Ipratropium Lillian (Atrovent 0.02% (Neb)) 0.5 mg Q8H RESP THERAPY HHN Last administered on 11/21/18 08:46; Admin Dose 0.5 MG; Start 11/21/18 at 00:00 Gabapentin (Neurontin) 600 mg BID GTB Last administered on 11/21/18 08:48; Admin Dose 600 MG; Start 11/20/18 at 21:00 Glycopyrrolate (Robinul) 1 mg BID WITH MEALS GTB Last administered on 11/21/18 08:48; Admin Dose 1 MG; Start 11/20/18 at 19:00 Montelukast Sodium (Singulair) 10 mg QHS GTB Last administered on 11/20/18 21:31; Admin Dose 10 MG; Start 11/20/18 at 21:00 Sertraline HCl (Zoloft) 25 mg DAILY GTB Last administered on 11/21/18 08:49; Admin Dose 25 MG; Start 11/21/18 at 09:00 Zinc Oxide (Zinc Oxide Oint) 1 applic DAILY TOP Last administered on 11/21/18 08:48; Admin Dose 1 APPLIC; Start 11/21/18 at 09:00 FRANK JURADO November 21, 2018 10:32
--- NOTE | 2018-11-21 10:59 | PN ---
Date/Time of Note Date/Time of Note DATE: 11/21/18 TIME: 10:53 Assessment/Plan VTE Prophylaxis Risk score (from Nsg)>0 risk: 5 SCD applied (from Nsg): Yes SCD contraindicated: low risk/ambulating Pharmacological prophylaxis: LMWH Lines/Catheters IV Catheter Type (from Nrs): Saline Lock Assessment/Plan Hospital Course Assessment and plan 1. Respiratory distress, atypical chest pain dyspnea, rule out pneumonia. multifactorial, stable consulted pulmonary. 2. Vent dependent respiratory failure, mod stable continue vent 3. Recent pneumothorax status post VATS procedure, follow-up on old records 4. Chest wall wound, continue wound care follow-up on old records 5. Chronic COPD? 6. Past tobacco use? 7. Type 2 diabetes 8. Hypertension 9. Debility 10. Dysphagia 11. PEG tube status for malnutrition 12. recent concern for pneumonia treated/finished antibiotics on the . 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 Open wound left chest wall continue wound care 15. Anxiety disorder refused benzo diazepam's. Consider behavioral health. S: 11/20 follows commands. shortness of breath. denies chest pain, fever, nausea/ vomiting. denies challenges with tube feeds. 11/21: incomplete data. 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 Underwent VATS surgery. Next had pneumothorax? Chest tube was placed. I think the next was dx w a bronchopleural fistula and underwent surgery debridement. Then transferred to [place] for rehab. Then transferred to [facility] locally. Just finished an antibiotic course at [facility]. O: Vss; st Physical exam No pallor adenopathy JVD Regular tachycardic normal no murmur rub gallop diminished bs bilaterally Hypotonia no edema negative Homans Result Diagram: 11/21/18 0520 11/21/18 0520 Results 24hrs Laboratory Tests Test 11/20/18 15:49 11/20/18 21:29 11/21/18 05:20 11/21/18 07:13 Bedside Glucose 113 85 91 White Blood Count 11.1 H Red Blood Count 2.54 L Hemoglobin 7.8 L Hematocrit 27.7 L Mean Corpuscular 109.1 H Volume Mean Corpuscular 30.7 Hemoglobin Mean Corpuscular 28.2 L Hemoglobin Concent Red Cell 13.7 Distribution Width Platelet Count 371 Mean Platelet Volume 10.6 H Immature 0.700 H Granulocytes % Neutrophils % 85.2 H Lymphocytes % 7.6 L Monocytes % 4.9 Eosinophils % 1.2 Basophils % 0.4 Nucleated Red Blood 0.0 Cells % Immature 0.080 H Granulocytes # Neutrophils # 9.5 H Lymphocytes # 0.8 Monocytes # 0.6 Eosinophils # 0.1 Basophils # 0.1 Nucleated Red Blood 0.0 Cells # Prothrombin Time 15.3 H Prothrombin Time 1.2 Ratio INR International 1.20 Normalized Ratio Sodium Level 145 H Potassium Level 3.6 Chloride Level 104 Carbon Dioxide Level 39 H Anion Gap 2 L Blood Urea Nitrogen 33 H Creatinine 0.52 Est Glomerular > 60 Filtrat Rate mL/min Glucose Level 92 Hemoglobin A1c 5.1 Calcium Level 9.1 Phosphorus Level 3.1 Magnesium Level 1.8 Total Bilirubin 0.2 Direct Bilirubin 0.00 Indirect Bilirubin 0.2 Aspartate Amino 34 Transf (AST/SGOT) Alanine 30 Aminotransferase (AL T/SGPT) Alkaline Phosphatase 118 Troponin I < 0.012 Total Protein 6.0 L Albumin 2.6 L Globulin 3.40 H Albumin/Globulin 0.76 Ratio Vitamin B12 Level 884 Folate > 20.0 H Procalcitonin 0.32 H Thyroid Stimulating 1.080 Hormone (TSH) Exam/Review of Systems Exam Vitals Vital Signs Date Temp Pulse Resp B/P (MAP) Pulse Ox O2 O2 Flow FiO2 Time Delivery Rate 11/21/18 110 20 100 50 09:16 11/21/18 97.8 94/55 (68) 08:00 11/20/18 Ambu Bag 18:30 Mechanical Ventilator Trach Collar Intake and Output 11/20/18 11/20/18 11/21/18 1515:00 23:00 07:00 IntakeIntake Total 540 ml BalanceBalance 540 ml Results Results 24hrs Laboratory Tests Test 11/20/18 15:49 11/20/18 21:29 11/21/18 05:20 11/21/18 07:13 Bedside Glucose 113 85 91 White Blood Count 11.1 H Red Blood Count 2.54 L Hemoglobin 7.8 L Hematocrit 27.7 L Mean Corpuscular 109.1 H Volume Mean Corpuscular 30.7 Hemoglobin Mean Corpuscular 28.2 L Hemoglobin Concent Red Cell 13.7 Distribution Width Platelet Count 371 Mean Platelet Volume 10.6 H Immature 0.700 H Granulocytes % Neutrophils % 85.2 H Lymphocytes % 7.6 L Monocytes % 4.9 Eosinophils % 1.2 Basophils % 0.4 Nucleated Red Blood 0.0 Cells % Immature 0.080 H Granulocytes # Neutrophils # 9.5 H Lymphocytes # 0.8 Monocytes # 0.6 Eosinophils # 0.1 Basophils # 0.1 Nucleated Red Blood 0.0 Cells # Prothrombin Time 15.3 H Prothrombin Time 1.2 Ratio INR International 1.20 Normalized Ratio Sodium Level 145 H Potassium Level 3.6 Chloride Level 104 Carbon Dioxide Level 39 H Anion Gap 2 L Blood Urea Nitrogen 33 H Creatinine 0.52 Est Glomerular > 60 Filtrat Rate mL/min Glucose Level 92 Hemoglobin A1c 5.1 Calcium Level 9.1 Phosphorus Level 3.1 Magnesium Level 1.8 Total Bilirubin 0.2 Direct Bilirubin 0.00 Indirect Bilirubin 0.2 Aspartate Amino 34 Transf (AST/SGOT) Alanine 30 Aminotransferase (AL T/SGPT) Alkaline Phosphatase 118 Troponin I < 0.012 Total Protein 6.0 L Albumin 2.6 L Globulin 3.40 H Albumin/Globulin 0.76 Ratio Vitamin B12 Level 884 Folate > 20.0 H Procalcitonin 0.32 H Thyroid Stimulating 1.080 Hormone (TSH) Medications Medication Current Medications IV Flush (NS 3 ml) 3 ml PER PROTOCOL IV ; Start 11/20/18 at 01:30 Acetaminophen (Tylenol Supp) 650 mg Q6H PRN [place] .PAIN 1-3 OR TEMP; Start 11/20/18 at 01:30 Albuterol/ Ipratropium (Duoneb) 3 ml Q2H RESP THERAPY PRN HHN SHORTNESS OF BREATH Last administered on 11/21/18at 04:24; Admin Dose 3 ML; Start 11/20/18 at 01:30 Vancomycin HCl (Vanco Iv Per Pharmacy) VANCOMYCIN PER PHARMACY PER PROTOCOL XX ; Start 11/20/18 at 01:30 Vancomycin/Sodium Chloride 250 ml @ 125 mls/hr Q12H IVPB Last administered on 11/20/18at 23:25; Admin Dose 125 MLS/HR; Start 11/20/18 at 11:00 Budesonide (Pulmicort (Neb)) 0.5 mg Q12 INH Last administered on 11/21/18at 08:46; Admin Dose 0.5 MG; Start 11/20/18 at 09:00 Buspirone HCl (Buspar) 10 mg BID PRN GTB TID Last administered on 11/20/18at 17:23; Admin Dose 10 MG; Start 11/20/18 at 08:30 Lansoprazole (Prevacid) 30 mg DAILY@0600 GTB Last administered on 11/21/18at 07:26; Admin Dose 30 MG; Start 11/20/18 at 09:00 Diagnostic Test (Pha) (Accu-Chek) 1 ea 02 XX ; Start 11/21/18 at 02:00 Insulin Aspart (Novolog Insulin Pen) NOVOLOG *MILD* ALGORI... Q6 SC ; Start 11/20/18 at 12:00 Cefepime HCl 50 ml @ 100 mls/hr Q12 IVPB Last administered on 11/21/18at 08:44; Admin Dose 100 MLS/HR; Start 11/20/18 at 09:00 Miscellaneous Information 1 ea NOTE XX ; Start 11/20/18 at 09:00 Glucose (Glutose) 15 gm Q15M PRN PO DECREASED GLUCOSE; Start 11/20/18 at 09:00 Glucose (Glutose) 22.5 gm Q15M PRN PO DECREASED GLUCOSE; Start 11/20/18 at 09:00 Dextrose (D50w Syringe) 25 ml Q15M PRN IV DECREASED GLUCOSE; Start 11/20/18 at 09:00 Dextrose (D50w Syringe) 50 ml Q15M PRN IV DECREASED GLUCOSE; Start 11/20/18 at 09:00 Glucagon (Glucagen) 1 mg Q15M PRN IM DECREASED GLUCOSE; Start 11/20/18 at 09:00 Glucose (Glutose) 15 gm Q15M PRN BUCCAL DECREASED GLUCOSE; Start 11/20/18 at 09:00 Sodium Chloride 1,000 ml @ 125 mls/hr Q8H IV Last administered on 11/21/18at 07:25; Admin Dose 125 MLS/HR; Start 11/20/18 at 13:00 Ondansetron HCl (Zofran Inj) 4 mg Q4 PRN IV NAUSEA/VOMITING Last administered on 11/21/18at 09:11; Admin Dose 4 MG; Start 11/20/18 at 16:30 Guaifenesin/ Dextromethorphan (Robitussin Dm Liquid Cup) 10 ml Q4 PRN PO COUGH; Start 11/20/18 at 16:30 Ipratropium Almo (Atrovent 0.02% (Neb)) 0.5 mg Q8H RESP THERAPY HHN Last administered on 11/21/18 08:46; Admin Dose 0.5 MG; Start 11/21/18 at 00:00 Gabapentin (Neurontin) 600 mg BID GTB Last administered on 11/21/18 08:48; Admin Dose 600 MG; Start 11/20/18 at 21:00 Glycopyrrolate (Robinul) 1 mg BID WITH MEALS GTB Last administered on 11/21/18 08:48; Admin Dose 1 MG; Start 11/20/18 at 19:00 Montelukast Sodium (Singulair) 10 mg QHS GTB Last administered on 11/20/18 21:31; Admin Dose 10 MG; Start 11/20/18 at 21:00 Sertraline HCl (Zoloft) 25 mg DAILY GTB Last administered on 11/21/18 08:49; Admin Dose 25 MG; Start 11/21/18 at 09:00 Zinc Oxide (Zinc Oxide Oint) 1 applic DAILY TOP Last administered on 11/21/18 08:48; Admin Dose 1 APPLIC; Start 11/21/18 at 09:00 MIRNA SOMMER MD November 21, 2018 10:59
[2018-11-21] MEDS: VANCOMYCIN 750 MG (PMX) 250 ML IVPB SCH ×2 (11:33→23:27)
[2018-11-21] MEDS: BUSPIRONE 10 MG TAB GTB PRN ×2 (12:05→21:10)
--- NOTE | 2018-11-21 19:23 | RADRPT ---
Echocardiogram Report Patient Name: AUBREE BOURNEPatient ID: [id number] : 1955 (63y 3m)Study Date: 11/21/2018 9:34:56 AM Gender: FAccession #: [id number] Tech: [facility] [place] Location: [facility] Ref.Physician: DARNELL BROWN Height(Cm): 157 BSA: 1.68Weight(Kg): 64.9 Quality: Technically Difficult StudyOrder Physician: DARNELL BROWN Account #: Procedures: Echocardiographic Report: Transthoracic echocardiogram examination. Indications: Congestive Heart Failure. Measurements: Doppler Measurement Value Normal Range AV Peak Bradford 1.5 [ 100.0 - 170.0 ] cm/sec AV Peak PG 9.0 [ 2.0 - 9.0 ] mmHg LVOT Peak Bradford 1.3 [ 70.0 - 110.0 ] cm/sec LVOT Peak PG 7.0 [ 2.0 - 6.0 ] mmHg MV E Peak Bradford 0.9 [ 60.0 - 130.0 ] cm/sec MV A Peak Bradford 1.3 [ 100.0 - 120.0 ] cm/sec MV E/A 0.8 [ 0.8 - 1.5 ] ratio MV PHT 38.0 [ 20.0 - 100.0 ] msec MV Decel Time 129 [ 104 - 258 ] msec MV Decel Jones 7 Lat E` Bradford 0.1 [ 10.0 - 15.0 ] cm/sec Lateral E/E` 8.5 [ 1.0 - 2.0 ] ratio Med E` Bradford 0.1 cm/sec MV E/A 0.8 [ 0.8 - 1.5 ] ratio MV PHT 38.0 [ 20.0 - 100.0 ] msec MVA PHT 5.8 [ 2.0 - 4.0 ] cm2 Findings: Left Ventricle: Normal left ventricular cavity size, wall thickness and systolic function. The left ventricular ejection fraction is visually estimated at 55-60 %. Right Ventricle: Normal right ventricular size. Normal right ventricular systolic function. Left Atrium: The left atrium is normal in size and appearance. Right Atrium: The right atrium is normal in size and appearance. Mitral Valve: Normal appearance of the mitral valve leaflets. Trace to mild mitral regurgitation. Aortic Valve: Normal appearance and function of the aortic valve to extent imaged in apical images only. No significant aortic stenosis or insufficiency. Tricuspid Valve: Normal appearance and function of the tricuspid valve with trace physiologic regurgitation. Pulmonic Valve: The pulmonic valve is not well visualized. Pericardium: Normal pericardium with no significant pericardial effusion. Aorta: Normal aortic root to extent imaged in apical views only. IVC: The inferior vena cava is not well visualized. Pulmonary Artery: Pulmonary artery is not well visualized. Conclusions: Normal left ventricular cavity size, wall thickness and systolic function. The left ventricular ejection fraction is visually estimated at 55-60 %. Normal appearance of the mitral valve leaflets. Trace to mild mitral regurgitation. Normal appearance and function of the tricuspid valve with trace physiologic regurgitation. Electronically Signed By: Roberto Stephenson 2018-11-21 19:22:36 PDT
[2018-11-21] MEDS: MONTELUKAST 10 MG TAB GTB SCH (21:10)
[2018-11-22] VITALS (22 sets, daily range): BP systolic 117–167; BP diastolic 55–81; PULSE 70–110; RESP 16–23
[2018-11-22] MEDS: ACCU-CHEK XX SCH (00:40)
[2018-11-22] MEDS: ALBUTEROL/IPRATROPIUM (NEB) 3 ML AMP HHN PRN (05:10)
[2018-11-22] MEDS: INSULIN ASPART [NOVOLOG] 3 ML PEN SC SCH ×5 (06:00→23:57)
[2018-11-22] MEDS: SOD CHLORIDE 0.9% 1,000 ML IV SCH ×2 (06:24→14:48)
[2018-11-22] MEDS: LANSOPRAZOLE 30 MG CAP GTB SCH (06:24)
[2018-11-22] MEDS: IPRATROPIUM (NEB) 0.5 MG/2.5 ML AMP HHN SCH ×3 (07:40→23:41)
[2018-11-22] MEDS: BUDESONIDE (NEB) 0.5MG/2ML AMP INH SCH ×2 (09:00→21:17)
[2018-11-22] MEDS: GLYCOPYRROLATE 1 MG TAB GTB SCH ×2 (09:12→18:45)
[2018-11-22] MEDS: CEFEPIME 1GM/50 ML (PMX) 50 ML IVPB SCH ×2 (09:12→21:55)
[2018-11-22] MEDS: SERTRALINE 50 MG TAB GTB SCH (09:13)
[2018-11-22] MEDS: METOPROLOL 25 MG TAB GTB SCH ×3 (09:13→21:57)
[2018-11-22] MEDS: GABAPENTIN 300 MG CAP GTB SCH ×2 (09:13→21:57)
[2018-11-22] MEDS: ENOXAPARIN 40 MG/0.4 ML SYG SC SCH (09:17)
[2018-11-22] MEDS: ZINC OXIDE 20% 30 GM OINT TOP SCH (09:48)
[2018-11-22] MEDS: VANCOMYCIN 500 MG (PMX) 100 ML IVPB SCH ×2 (11:48→23:52)
[2018-11-22] MEDS: BUSPIRONE 10 MG TAB GTB PRN ×2 (11:48→22:04)
--- NOTE | 2018-11-22 13:00 | CONS ---
Assessment/Plan Assessment/Plan Assessment/Plan (Daily) Ventilator setting; assist control of 20, tidal volume 450, PEEP of 5, 60% FiO2. Assessment recommendations; 1. Patient with history of VDRF with a history of right VATS due to pneumothorax complicated by failure of lung to reexpand status post chest wall cavity packing admitted for severe hypoxemia possibly due to some element of pneumonia. Patient currently on appropriate antimicrobial regimen with improving leukocytosis. 2. History of anxiety. 3. Chronic severe hypercapnic respiratory failure. 4. Right chest wound. Continue current supportive care. I did have a detailed discussion with the patient as well as her daughters at bedside. Wound consult evaluation is pending. Consultation Date/Type/Reason Admit Date/Time November 19, 2018 at 23:35 Initial Consult Date 11/21/18 Type of Consult Pulmonary Patient is a 63-year-old male who has been [facility] with hypoxemia. Patient has a history of right VATS surgery with severe volume loss on the right side. Patient also has advanced encephalopathy and was unresponsive at examination. Patient however did not appear to be in any distress. Past medical history; 1. History of VDRF 2. Tracheostomy and G-tube placement. 3. Extensive right VATS. 4. Severe COPD with bullous emphysema. 5. Pulmonary fibrosis. 6. Hypertension and diabetes. 7. Chronic anemia. Medications; reviewed. Allergies; as outlined above. Social history, family history, occupational history is not available. Review of system; unable to be obtained. General exam; elderly male, on ventilator via tracheostomy, unresponsive, currently in no distress. Date/Time of Note DATE: 11/22/18 TIME: 12:54 24 HR Interval Summary Free Text/Dictation Patient's condition is fairly stable. Patient has remained hemodynamically stable. General exam; elderly lady, on ventilator via tracheostomy, awake and alert. Appears mildly anxious. Currently no distress though. Exam/Review of Systems Exam Vitals Vital Signs Date Temp Pulse Resp B/P (MAP) Pulse Ox O2 O2 Flow FiO2 Time Delivery Rate 11/22/18 98.0 16 136/65 98 11:58 (88) 11/22/18 102 60 09:27 11/22/18 Mechanical 07:10 Ventilator Intake and Output 11/21/18 11/21/18 11/22/18 1515:00 23:00 07:00 IntakeIntake Total 1600 ml 1780 ml BalanceBalance 1600 ml 1780 ml Exam HEENT exam; supple neck, no JVD. No lymphadenopathy. Midline trachea. No thyromegaly. Tracheostomy in place. Insertion site is clean. Chest exam; diminished breath sounds throughout. Dressing applied to right lateral chest wall. S1-S2 audible, no murmurs. Abdomen exam; soft, nontender. No organomegaly. Bowel sounds are audible. Extremity exam; no peripheral edema clubbing. PRINT PRODUCTION MANAGER exam; no focal deficit. Results Result Diagram: 11/22/18 0634 11/22/18 0634 Results 24hrs Laboratory Tests Test 11/21/18 17:35 11/21/18 22:16 11/22/18 00:23 11/22/18 06:23 Bedside Glucose 99 95 104 Vancomycin Level 17.4 Trough Test 11/22/18 06:34 11/22/18 09:25 11/22/18 11:58 White Blood Count 11.1 H Red Blood Count 2.71 L Hemoglobin 8.4 L Hematocrit 29.4 L Mean Corpuscular 108.5 H Volume Mean Corpuscular 31.0 Hemoglobin Mean Corpuscular 28.6 L Hemoglobin Concent Red Cell 13.3 Distribution Width Platelet Count 347 Mean Platelet Volume 10.4 Immature 0.800 H Granulocytes % Neutrophils % 84.8 H Lymphocytes % 7.2 L Monocytes % 5.1 Eosinophils % 1.7 Basophils % 0.4 Nucleated Red Blood 0.0 Cells % Immature 0.090 H Granulocytes # Neutrophils # 9.4 H Lymphocytes # 0.8 Monocytes # 0.6 Eosinophils # 0.2 Basophils # 0.0 Nucleated Red Blood 0.0 Cells # Sodium Level 143 Potassium Level 3.6 Chloride Level 103 Carbon Dioxide Level 38 H Anion Gap 2 L Blood Urea Nitrogen 24 H Creatinine 0.48 Est Glomerular > 60 Filtrat Rate mL/min Glucose Level 98 Calcium Level 9.0 Phosphorus Level 3.2 Magnesium Level 1.7 Bedside Glucose 114 102 Medications Medication Current Medications IV Flush (NS 3 ml) 3 ml PER PROTOCOL IV ; Start 11/20/18 at 01:30 Acetaminophen (Tylenol Supp) 650 mg Q6H PRN [place] .PAIN 1-3 OR TEMP; Start 11/20/18 at 01:30 Albuterol/ Ipratropium (Duoneb) 3 ml Q2H RESP THERAPY PRN HHN SHORTNESS OF BREATH Last administered on 11/22/18at 05:10; Admin Dose 3 ML; Start 11/20/18 at 01:30 Vancomycin HCl (Vanco Iv Per Pharmacy) VANCOMYCIN PER PHARMACY PER PROTOCOL XX ; Start 11/20/18 at 01:30 Budesonide (Pulmicort (Neb)) 0.5 mg Q12 INH Last administered on 11/21/18at 20:27; Admin Dose 0.5 MG; Start 11/20/18 at 09:00 Buspirone HCl (Buspar) 10 mg BID PRN GTB TID Last administered on 11/22/18at 11:48; Admin Dose 10 MG; Start 11/20/18 at 08:30 Lansoprazole (Prevacid) 30 mg DAILY@0600 GTB Last administered on 11/22/18at 06:24; Admin Dose 30 MG; Start 11/20/18 at 09:00 Diagnostic Test (Pha) (Accu-Chek) 1 ea 02 XX ; Start 11/21/18 at 02:00 Insulin Aspart (Novolog Insulin Pen) NOVOLOG *MILD* ALGORI... Q6 SC ; Start 11/20/18 at 12:00 Cefepime HCl 50 ml @ 100 mls/hr Q12 IVPB Last administered on 11/22/18at 09:12; Admin Dose 100 MLS/HR; Start 11/20/18 at 09:00 Miscellaneous Information 1 ea NOTE XX ; Start 11/20/18 at 09:00 Glucose (Glutose) 15 gm Q15M PRN PO DECREASED GLUCOSE; Start 11/20/18 at 09:00 Glucose (Glutose) 22.5 gm Q15M PRN PO DECREASED GLUCOSE; Start 11/20/18 at 09:00 Dextrose (D50w Syringe) 25 ml Q15M PRN IV DECREASED GLUCOSE; Start 11/20/18 at 09:00 Dextrose (D50w Syringe) 50 ml Q15M PRN IV DECREASED GLUCOSE; Start 11/20/18 at 09:00 Glucagon (Glucagen) 1 mg Q15M PRN IM DECREASED GLUCOSE; Start 11/20/18 at 09:00 Glucose (Glutose) 15 gm Q15M PRN BUCCAL DECREASED GLUCOSE; Start 11/20/18 at 09:00 Sodium Chloride 1,000 ml @ 125 mls/hr Q8H IV Last administered on 11/21/18 22:15; Admin Dose 125 MLS/HR; Start 11/20/18 at 13:00 Ondansetron HCl (Zofran Inj) 4 mg Q4 PRN IV NAUSEA/VOMITING Last administered on 11/21/18 09:11; Admin Dose 4 MG; Start 11/20/18 at 16:30 Guaifenesin/ Dextromethorphan (Robitussin Dm Liquid Cup) 10 ml Q4 PRN PO COUGH; Start 11/20/18 at 16:30 Ipratropium [place] (Atrovent 0.02% (Neb)) 0.5 mg Q8H RESP THERAPY HHN Last administered on 11/22/18 07:40; Admin Dose 0.5 MG; Start 11/21/18 at 00:00 Gabapentin (Neurontin) 600 mg BID GTB Last administered on 11/22/18 09:13; Admin Dose 600 MG; Start 11/20/18 at 21:00 Glycopyrrolate (Robinul) 1 mg BID WITH MEALS GTB Last administered on 10/28 09:12; Admin Dose 1 MG; Start 11/20/18 at 19:00 Montelukast Sodium (Singulair) 10 mg QHS GTB Last administered on 11/21/18 21:10; Admin Dose 10 MG; Start 11/20/18 at 21:00 Sertraline HCl (Zoloft) 25 mg DAILY GTB Last administered on 11/22/18 09:13; Admin Dose 25 MG; Start 11/21/18 at 09:00 Zinc Oxide (Zinc Oxide Oint) 1 applic DAILY TOP Last administered on 11/22/18 09:48; Admin Dose 1 APPLIC; Start 11/21/18 at 09:00 Enoxaparin Sodium (Lovenox) 40 mg DAILY SC Last administered on 11/22/18 09:17; Admin Dose 40 MG; Start 11/22/18 at 09:00 Vancomycin HCl 100 ml @ 100 mls/hr Q12H IVPB Last administered on 11/22/18 11:48; Admin Dose 100 MLS/HR; Start 11/22/18 at 11:00 Metoprolol Tartrate (Lopressor) 12.5 mg TID GTB Last administered on 5/27/19at 09:13; Admin Dose 12.5 MG; Start 11/22/18 at 09:00 FRANK JURADO November 22, 2018 13:00
--- NOTE | 2018-11-22 14:44 | PN ---
Date/Time of Note Date/Time of Note DATE: 11/22/18 TIME: 14:33 Assessment/Plan VTE Prophylaxis Risk score (from Ns)>0 risk: 5 SCD applied (from Ns): Yes Pharmacological prophylaxis: LMWH Lines/Catheters IV C[facility]ter Type (from [facility]): Peripheral IV Assessment/Plan Assessment/Plan 1. Acute on chronic respiratory failure, vent dependent - Pulmonology on board and weaning FIO2 as tolerated. continue vent management - nebs PRN - continue antibiotics 2. h/o Recent pneumothorax status post VATS procedure 3. Chronic chest wall wound - wound care consulted 4. Chronic COPD - IV antibiotics and Nebs on board 5. Type 2 diabetes - A1c noted 6. Hypertension - stable 7. Dysphagia - speech to evaluation - tolerating clears - PEG in place and TF resumed - Nutrition consultation appreciated 8. Bronchopleural fistula sp surgery 9. Anxiety - refusing benzos 10. Disposition - Continue current care. noted with dark stool and FOBT ordered Result Diagram: 11/22/18 0634 11/22/18 0634 Results 24hrs Laboratory Tests Test 11/21/18 17:35 11/21/18 22:16 11/22/18 00:23 11/22/18 06:23 Bedside Glucose 99 95 104 Vancomycin Level 17.4 Trough Test 11/22/18 06:34 11/22/18 09:25 11/22/18 11:58 White Blood Count 11.1 H Red Blood Count 2.71 L Hemoglobin 8.4 L Hematocrit 29.4 L Mean Corpuscular 108.5 H Volume Mean Corpuscular 31.0 Hemoglobin Mean Corpuscular 28.6 L Hemoglobin Concent Red Cell 13.3 Distribution Width Platelet Count 347 Mean Platelet Volume 10.4 Immature 0.800 H Granulocytes % Neutrophils % 84.8 H Lymphocytes % 7.2 L Monocytes % 5.1 Eosinophils % 1.7 Basophils % 0.4 Nucleated Red Blood 0.0 Cells % Immature 0.090 H Granulocytes # Neutrophils # 9.4 H Lymphocytes # 0.8 Monocytes # 0.6 Eosinophils # 0.2 Basophils # 0.0 Nucleated Red Blood 0.0 Cells # Sodium Level 143 Potassium Level 3.6 Chloride Level 103 Carbon Dioxide Level 38 H Anion Gap 2 L Blood Urea Nitrogen 24 H Creatinine 0.48 Est Glomerular > 60 Filtrat Rate mL/min Glucose Level 98 Calcium Level 9.0 Phosphorus Level 3.2 Magnesium Level 1.7 Bedside Glucose 114 102 Subjective 24 Hr Interval Summary Free Text/Dictation Patient complaining of difficulty breathing this am and RT made aware. Maintaining saturations Exam/Review of Systems Exam Vitals Vital Signs Date Temp Pulse Resp B/P (MAP) Pulse Ox O2 O2 Flow FiO2 Time Delivery Rate 11/22/18 88 12:57 11/22/18 98.0 16 136/65 98 11:58 (88) 11/22/18 60 11:30 11/22/18 Mechanical 07:10 Ventilator Intake and Output 11/21/18 11/21/18 11/22/18 1515:00 23:00 07:00 IntakeIntake Total 1600 ml 1780 ml BalanceBalance 1600 ml 1780 ml Exam General: Patient is in mild respiratory distress. Mouthing responsive and answe ring appropriately Neck: Supple. trach in place Chest: Nontender, dressing right lateral chest wall Lungs: Clear to auscultation bilaterally, diminished, no wheezing or rhonchi Heart: Normal S1-S2, Regular rhythm and rate. No murmur, S3, or S4 Abdomen: Soft , nontender, nondistended , bowel sounds are present. No guarding no rebound tenderness Extremities: Normal to inspection, no edema no cyanosis Skin: no rashes or lesions Results Results 24hrs Laboratory Tests Test 11/21/18 17:35 11/21/18 22:16 11/22/18 00:23 11/22/18 06:23 Bedside Glucose 99 95 104 Vancomycin Level 17.4 Trough Test 11/22/18 06:34 11/22/18 09:25 11/22/18 11:58 White Blood Count 11.1 H Red Blood Count 2.71 L Hemoglobin 8.4 L Hematocrit 29.4 L Mean Corpuscular 108.5 H Volume Mean Corpuscular 31.0 Hemoglobin Mean Corpuscular 28.6 L Hemoglobin Concent Red Cell 13.3 Distribution Width Platelet Count 347 Mean Platelet Volume 10.4 Immature 0.800 H Granulocytes % Neutrophils % 84.8 H Lymphocytes % 7.2 L Monocytes % 5.1 Eosinophils % 1.7 Basophils % 0.4 Nucleated Red Blood 0.0 Cells % Immature 0.090 H Granulocytes # Neutrophils # 9.4 H Lymphocytes # 0.8 Monocytes # 0.6 Eosinophils # 0.2 Basophils # 0.0 Nucleated Red Blood 0.0 Cells # Sodium Level 143 Potassium Level 3.6 Chloride Level 103 Carbon Dioxide Level 38 H Anion Gap 2 L Blood Urea Nitrogen 24 H Creatinine 0.48 Est Glomerular > 60 Filtrat Rate mL/min Glucose Level 98 Calcium Level 9.0 Phosphorus Level 3.2 Magnesium Level 1.7 Bedside Glucose 114 102 Medications Medication Current Medications IV Flush (NS 3 ml) 3 ml PER PROTOCOL IV ; Start 11/20/18 at 01:30 Acetaminophen (Tylenol Supp) 650 mg Q6H PRN [place] .PAIN 1-3 OR TEMP; Start 11/20/18 at 01:30 Albuterol/ Ipratropium (Duoneb) 3 ml Q2H RESP THERAPY PRN HHN SHORTNESS OF BREATH Last administered on 11/22/18at 05:10; Admin Dose 3 ML; Start 11/20/18 at 01:30 Vancomycin HCl (Vanco Iv Per Pharmacy) VANCOMYCIN PER PHARMACY PER PROTOCOL XX ; Start 11/20/18 at 01:30 Budesonide (Pulmicort (Neb)) 0.5 mg Q12 INH Last administered on 11/21/18at 20:27; Admin Dose 0.5 MG; Start 11/20/18 at 09:00 Buspirone HCl (Buspar) 10 mg BID PRN GTB TID Last administered on 11/22/18at 11:48; Admin Dose 10 MG; Start 11/20/18 at 08:30 Lansoprazole (Prevacid) 30 mg DAILY@0600 GTB Last administered on 11/22/18at 06:24; Admin Dose 30 MG; Start 11/20/18 at 09:00 Diagnostic Test (Pha) (Accu-Chek) 1 ea 02 XX ; Start 11/21/18 at 02:00 Insulin Aspart (Novolog Insulin Pen) NOVOLOG *MILD* ALGORI... Q6 SC ; Start 11/20/18 at 12:00 Cefepime HCl 50 ml @ 100 mls/hr Q12 IVPB Last administered on 11/22/18at 09:12; Admin Dose 100 MLS/HR; Start 11/20/18 at 09:00 Miscellaneous Information 1 ea NOTE XX ; Start 11/20/18 at 09:00 Glucose (Glutose) 15 gm Q15M PRN PO DECREASED GLUCOSE; Start 11/20/18 at 09:00 Glucose (Glutose) 22.5 gm Q15M PRN PO DECREASED GLUCOSE; Start 11/20/18 at 09:00 Dextrose (D50w Syringe) 25 ml Q15M PRN IV DECREASED GLUCOSE; Start 11/20/18 at 09:00 Dextrose (D50w Syringe) 50 ml Q15M PRN IV DECREASED GLUCOSE; Start 11/20/18 at 09:00 Glucagon (Glucagen) 1 mg Q15M PRN IM DECREASED GLUCOSE; Start 11/20/18 at 09:00 Glucose (Glutose) 15 gm Q15M PRN BUCCAL DECREASED GLUCOSE; Start 11/20/18 at 09:00 Sodium Chloride 1,000 ml @ 125 mls/hr Q8H IV Last administered on 11/21/18at 22:15; Admin Dose 125 MLS/HR; Start 11/20/18 at 13:00 Ondansetron HCl (Zofran Inj) 4 mg Q4 PRN IV NAUSEA/VOMITING Last administered on 11/21/18at 09:11; Admin Dose 4 MG; Start 11/20/18 at 16:30 Guaifenesin/ Dextromethorphan (Robitussin Dm Liquid Cup) 10 ml Q4 PRN PO COUGH; Start 11/20/18 at 16:30 Ipratropium [place] (Atrovent 0.02% (Neb)) 0.5 mg Q8H RESP THERAPY HHN Last administered on 11/22/18at 07:40; Admin Dose 0.5 MG; Start 11/21/18 at 00:00 Gabapentin (Neurontin) 600 mg BID GTB Last administered on 11/22/18at 09:13; Admin Dose 600 MG; Start 11/20/18 at 21:00 Glycopyrrolate (Robinul) 1 mg BID WITH MEALS GTB Last administered on 11/22/18 09:12; Admin Dose 1 MG; Start 11/20/18 at 19:00 Montelukast Sodium (Singulair) 10 mg QHS GTB Last administered on 11/21/18at 21:10; Admin Dose 10 MG; Start 11/20/18 at 21:00 Sertraline HCl (Zoloft) 25 mg DAILY GTB Last administered on 11/22/18 09:13; Admin Dose 25 MG; Start 11/21/18 at 09:00 Zinc Oxide (Zinc Oxide Oint) 1 applic DAILY TOP Last administered on 11/22/18 09:48; Admin Dose 1 APPLIC; Start 11/21/18 at 09:00 Enoxaparin Sodium (Lovenox) 40 mg DAILY SC Last administered on 11/22/18 09:17; Admin Dose 40 MG; Start 11/22/18 at 09:00 Vancomycin HCl 100 ml @ 100 mls/hr Q12H IVPB Last administered on 11/22/18 11:48; Admin Dose 100 MLS/HR; Start 11/22/18 at 11:00 Metoprolol Tartrate (Lopressor) 12.5 mg TID GTB Last administered on 11/22/18 09:13; Admin Dose 12.5 MG; Start 11/22/18 at 09:00 ELOY GEE MD November 22, 2018 14:44
[2018-11-22] MEDS: MONTELUKAST 10 MG TAB GTB SCH (21:57)
[2018-11-23] VITALS (22 sets, daily range): BP systolic 133–160; BP diastolic 68–80; PULSE 74–100; RESP 16–23
[2018-11-23] MEDS: ACCU-CHEK XX SCH (02:00)
[2018-11-23] MEDS: SOD CHLORIDE 0.9% 1,000 ML IV SCH (03:51)
[2018-11-23] MEDS: ALBUTEROL/IPRATROPIUM (NEB) 3 ML AMP HHN PRN ×5 (04:16→20:03)
[2018-11-23] MEDS: INSULIN ASPART [NOVOLOG] 3 ML PEN SC SCH ×3 (06:00→17:09)
[2018-11-23] MEDS: LANSOPRAZOLE 30 MG CAP GTB SCH (06:09)
[2018-11-23] MEDS ORDERED: BUSPIRONE 10 MG TAB GTB PRN (07:00)
[2018-11-23] MEDS: IPRATROPIUM (NEB) 0.5 MG/2.5 ML AMP HHN SCH ×3 (07:38→23:27)
[2018-11-23] MEDS: GLYCOPYRROLATE 1 MG TAB GTB SCH ×2 (08:30→17:10)
[2018-11-23] MEDS: SERTRALINE 50 MG TAB GTB SCH (08:30)
[2018-11-23] MEDS: GABAPENTIN 300 MG CAP GTB SCH ×2 (08:31→20:59)
[2018-11-23] MEDS: METOPROLOL 25 MG TAB GTB SCH ×3 (08:31→20:59)
[2018-11-23] MEDS: ENOXAPARIN 40 MG/0.4 ML SYG SC SCH (08:33)
[2018-11-23] MEDS: ZINC OXIDE 20% 30 GM OINT TOP SCH (08:47)
[2018-11-23] MEDS: BUDESONIDE (NEB) 0.5MG/2ML AMP INH SCH ×2 (09:22→20:03)
--- NOTE | 2018-11-23 09:49 | CONS ---
Assessment/Plan Assessment/Plan Assessment/Plan (Daily) Ventilator setting; AC of 20, tidal volume 450, PEEP of 5, 60% FiO2. Assessment and recommendations; 1. Patient with history of VDRF status post right VATS in the past with extensive chest wall cavity packing due to failure of lung to reexpand admitted for possibly pneumonia with chronic hypercapnic and hypoxemic respiratory failure. 2. History of neuropathy. 3. Diabetes and hypertension. 4. Mild anemia. 5. Anxiety and depression. Continue current supportive care. Consultation Date/Type/Reason Admit Date/Time November 19, 2018 at 23:35 Initial Consult Date 11/21/18 Type of Consult Pulmonary Patient is a 63-year-old male who has been [facility] with [facility]emia. Patient has a history of right VATS surgery with severe volume loss on the right side. Patient also has advanced encephalopathy and was unresponsive at examination. Patient however did not appear to be in any distress. Past medical history; 1. History of VDRF 2. Tracheostomy and G-tube placement. 3. Extensive right VATS. 4. Severe COPD with bullous emphysema. 5. Pulmonary fibrosis. 6. Hypertension and diabetes. 7. Chronic anemia. Medications; reviewed. Allergies; as outlined above. Social history, family history, occupational history is not available. Review of system; unable to be obtained. General exam; elderly male, on ventilator via tracheostomy, unresponsive, currently in no distress. Date/Time of Note DATE: 11/23/18 TIME: 09:47 24 HR Interval Summary Free Text/Dictation Patient's condition is stable. Has remained hemodynamically stable. General exam; elderly woman, on ventilator via tracheostomy, awake and alert. Currently in no distress. Exam/Review of Systems Exam Vitals Vital Signs Date Temp Pulse Resp B/P (MAP) Pulse Ox O2 O2 Flow FiO2 Time Delivery Rate 11/23/18 62 20 100 60 09:27 11/23/18 97.9 133/77 07:34 (95) 11/22/18 Mechanical 15:44 Ventilator Intake and Output 11/22/18 11/22/18 11/23/18 1515:00 23:00 07:00 IntakeIntake Total 350 ml 730 ml BalanceBalance 350 ml 730 ml Exam H EENT exam; supple neck, no JVD. No lymphadenopathy. Midline trachea. No thyromegaly. Patient has fair dentition. Tracheostomy in place. Insertion site is clean. Chest exam; diminished breath sounds throughout. Packing applied to right lateral chest wall. S1-S2 audible, no murmurs. Abdomen exam; soft, no organomegaly. Bowel sounds audible. Extremity exam; no peripheral edema. [employer] exam; no focal motor deficit. Results Result Diagram: 11/23/18 0523 11/22/18 0634 Results 24hrs Laboratory Tests Test 11/22/18 11:58 11/22/18 22:30 11/22/18 23:49 11/23/18 05:23 Bedside Glucose 102 101 Stool Occult Blood NEGATIVE White Blood Count 14.3 #H Red Blood Count 2.73 L Hemoglobin 8.5 L Hematocrit 29.4 L Mean Corpuscular 107.7 H Volume Mean Corpuscular 31.1 Hemoglobin Mean Corpuscular 28.9 L Hemoglobin Concent Red Cell 13.1 Distribution Width Platelet Count 335 Mean Platelet Volume 10.1 Immature 0.700 H Granulocytes % Neutrophils % 88.9 H Lymphocytes % 5.2 L Monocytes % 4.1 Eosinophils % 0.8 Basophils % 0.3 Nucleated Red Blood 0.0 Cells % Immature 0.100 H Granulocytes # Neutrophils # 12.7 H Lymphocytes # 0.7 L Monocytes # 0.6 Eosinophils # 0.1 Basophils # 0.0 Nucleated Red Blood 0.0 Cells # Test 11/23/18 06:10 Bedside Glucose 104 Medications Medication Current Medications IV Flush (NS 3 ml) 3 ml PER PROTOCOL IV ; Start 11/20/18 at 01:30 Acetaminophen (Tylenol Supp) 650 mg Q6H PRN [place] .PAIN 1-3 OR TEMP; Start 11/20/18 at 01:30 Albuterol/ Ipratropium (Duoneb) 3 ml Q2H RESP THERAPY PRN HHN SHORTNESS OF BREATH Last administered on 11/23/18at 06:30; Admin Dose 3 ML; Start 11/20/18 at 01:30 Vancomycin HCl (Vanco Iv Per Pharmacy) VANCOMYCIN PER PHARMACY PER PROTOCOL XX ; Start 11/20/18 at 01:30 Budesonide (Pulmicort (Neb)) 0.5 mg Q12 INH Last administered on 11/23/18at 09:22; Admin Dose 0.5 MG; Start 11/20/18 at 09:00 Lansoprazole (Prevacid) 30 mg DAILY@0600 GTB Last administered on 11/23/18at 06:09; Admin Dose 30 MG; Start 11/20/18 at 09:00 Diagnostic Test (Pha) (Accu-Chek) 1 ea 02 XX ; Start 11/21/18 at 02:00 Insulin Aspart (Novolog Insulin Pen) NOVOLOG *MILD* ALGORI... Q6 SC ; Start 11/20/18 at 12:00 Cefepime HCl 50 ml @ 100 mls/hr Q12 IVPB Last administered on 11/22/18at 21:55; Admin Dose 100 MLS/HR; Start 11/20/18 at 09:00 Miscellaneous Information 1 ea NOTE XX ; Start 11/20/18 at 09:00 Glucose (Glutose) 15 gm Q15M PRN PO DECREASED GLUCOSE; Start 11/20/18 at 09:00 Glucose (Glutose) 22.5 gm Q15M PRN PO DECREASED GLUCOSE; Start 11/20/18 at 09:00 Dextrose (D50w Syringe) 25 ml Q15M PRN IV DECREASED GLUCOSE; Start 11/20/18 at 09:00 Dextrose (D50w Syringe) 50 ml Q15M PRN IV DECREASED GLUCOSE; Start 11/20/18 at 09:00 Glucagon (Glucagen) 1 mg Q15M PRN IM DECREASED GLUCOSE; Start 11/20/18 at 09:00 Glucose (Glutose) 15 gm Q15M PRN BUCCAL DECREASED GLUCOSE; Start 11/20/18 at 09:00 Sodium Chloride 1,000 ml @ 60 mls/hr [id number] IV Last administered on 11/22/18at 14:48; Admin Dose 60 MLS/HR; Start 11/20/18 at 13:00 Ondansetron HCl (Zofran Inj) 4 mg Q4 PRN IV NAUSEA/VOMITING Last administered on 11/21/18at 09:11; Admin Dose 4 MG; Start 11/20/18 at 16:30 Guaifenesin/ Dextromethorphan (Robitussin Dm Liquid Cup) 10 ml Q4 PRN PO COUGH; Start 11/20/18 at 16:30 Ipratropium [place] (Atrovent 0.02% (Neb)) 0.5 mg Q8H RESP THERAPY HHN Last administered on 11/23/18at 07:38; Admin Dose 0.5 MG; Start 11/21/18 at 00:00 Gabapentin (Neurontin) 600 mg BID GTB Last administered on 11/23/18 08:31; Admin Dose 600 MG; Start 11/20/18 at 21:00 Glycopyrrolate (Robinul) 1 mg BID WITH MEALS GTB Last administered on 11/23/18 08:30; Admin Dose 1 MG; Start 11/20/18 at 19:00 Montelukast Sodium (Singulair) 10 mg QHS GTB Last administered on 11/22/18 21:57; Admin Dose 10 MG; Start 11/20/18 at 21:00 Sertraline HCl (Zoloft) 25 mg DAILY GTB Last administered on 11/23/18 08:30; Admin Dose 25 MG; Start 11/21/18 at 09:00 Zinc Oxide (Zinc Oxide Oint) 1 applic DAILY TOP Last administered on 11/23/18 08:47; Admin Dose 1 APPLIC; Start 11/21/18 at 09:00 Enoxaparin Sodium (Lovenox) 40 mg DAILY SC Last administered on 11/23/18 08:33; Admin Dose 40 MG; Start 11/22/18 at 09:00 Vancomycin HCl 100 ml @ 100 mls/hr Q12H IVPB Last administered on 11/22/18 23:52; Admin Dose 100 MLS/HR; Start 11/22/18 at 11:00 Metoprolol Tartrate (Lopressor) 12.5 mg TID GTB Last administered on 11/23/18 08:31; Admin Dose 12.5 MG; Start 11/22/18 at 09:00 Buspirone HCl (Buspar) 10 mg TID PRN GTB ANXIETY Last administered on 11/23/18 07:03; Admin Dose 10 MG; Start 11/23/18 at 07:00 FRANK JURADO November 23, 2018 09:49
[2018-11-23] MEDS: CEFEPIME 1GM/50 ML (PMX) 50 ML IVPB SCH ×2 (09:52→20:59)
[2018-11-23] MEDS: VANCOMYCIN 500 MG (PMX) 100 ML IVPB SCH (10:50)
--- NOTE | 2018-11-23 10:57 | PN ---
Date/Time of Note Date/Time of Note DATE: 11/23/18 TIME: 10:57 Assessment/Plan VTE Prophylaxis Risk score (from Ns)>0 risk: 15 SCD applied (from Ns): Yes Pharmacological prophylaxis: LMWH Lines/Catheters IV Catheter Type (from Nrs): Peripheral IV Assessment/Plan Assessment/Plan 1. Acute on chronic respiratory failure, vent dependent - Pulmonology on board and weaning FIO2 as tolerated. continue vent management - nebs PRN - continue antibiotics 2. h/o recent pneumothorax status post VATS procedure 3. Chronic chest wall wound - wound care consulted 4. Chronic COPD - IV antibiotics and Nebs on board 5. Type 2 diabetes - A1c noted 6. Hypertension - stable 7. Dysphagia - speech evaluation appreciated - continue tube feeds and PO for oral gratification 8. Bronchopleural fistula s/p surgery 9. Anxiety - refusing benzos - will increase Buspar dose 10. Disposition - Continue current care per Pulm recommendations and awaiting [place] evaluation Result Diagram: 11/23/18 0523 11/22/18 0634 Results 24hrs Laboratory Tests Test 11/22/18 11:58 11/22/18 22:30 11/22/18 23:49 11/23/18 05:23 Bedside Glucose 102 101 Stool Occult Blood NEGATIVE White Blood Count 14.3 #H Red Blood Count 2.73 L Hemoglobin 8.5 L Hematocrit 29.4 L Mean Corpuscular 107.7 H Volume Mean Corpuscular 31.1 Hemoglobin Mean Corpuscular 28.9 L Hemoglobin Concent Red Cell 13.1 Distribution Width Platelet Count 335 Mean Platelet Volume 10.1 Immature 0.700 H Granulocytes % Neutrophils % 88.9 H Lymphocytes % 5.2 L Monocytes % 4.1 Eosinophils % 0.8 Basophils % 0.3 Nucleated Red Blood 0.0 Cells % Immature 0.100 H Granulocytes # Neutrophils # 12.7 H Lymphocytes # 0.7 L Monocytes # 0.6 Eosinophils # 0.1 Basophils # 0.0 Nucleated Red Blood 0.0 Cells # Test 11/23/18 06:10 Bedside Glucose 104 Subjective 24 Hr Interval Summary Free Text/Dictation Patient still complaining of shortness of breath but appears in no distress. Most likely component of anxiety. Exam/Review of Systems Exam Vitals Vital Signs Date Temp Pulse Resp B/P (MAP) Pulse Ox O2 O2 Flow FiO2 Time Delivery Rate 11/23/18 62 20 100 60 09:27 11/23/18 97.9 133/77 07:34 (95) 11/22/18 Mechanical 15:44 Ventilator Intake and Output 11/22/18 11/22/18 11/23/18 1515:00 23:00 07:00 IntakeIntake Total 350 ml 730 ml BalanceBalance 350 ml 730 ml Exam General: Patient appears comfortable but anxious Neck: Supple. trach in place Chest: Nontender, dressing right lateral chest wall Lungs: Clear to auscultation bilaterally, diminished, no wheezing or rhonchi Heart: Normal S1-S2, Regular rhythm and rate. No murmur, S3, or S4 Abdomen: Soft , nontender, nondistended , bowel sounds are present. No guarding no rebound tenderness Extremities: Normal to inspection, no edema no cyanosis Skin: no rashes or lesions Results Results 24hrs Laboratory Tests Test 11/22/18 11:58 11/22/18 22:30 11/22/18 23:49 11/23/18 05:23 Bedside Glucose 102 101 Stool Occult Blood NEGATIVE White Blood Count 14.3 #H Red Blood Count 2.73 L Hemoglobin 8.5 L Hematocrit 29.4 L Mean Corpuscular 107.7 H Volume Mean Corpuscular 31.1 Hemoglobin Mean Corpuscular 28.9 L Hemoglobin Concent Red Cell 13.1 Distribution Width Platelet Count 335 Mean Platelet Volume 10.1 Immature 0.700 H Granulocytes % Neutrophils % 88.9 H Lymphocytes % 5.2 L Monocytes % 4.1 Eosinophils % 0.8 Basophils % 0.3 Nucleated Red Blood 0.0 Cells % Immature 0.100 H Granulocytes # Neutrophils # 12.7 H Lymphocytes # 0.7 L Monocytes # 0.6 Eosinophils # 0.1 Basophils # 0.0 Nucleated Red Blood 0.0 Cells # Test 11/23/18 06:10 Bedside Glucose 104 Medications Medication Current Medications IV Flush (NS 3 ml) 3 ml PER PROTOCOL IV ; Start 11/20/18 at 01:30 Acetaminophen (Tylenol Supp) 650 mg Q6H PRN [place] .PAIN 1-3 OR TEMP; Start 11/20/18 at 01:30 Albuterol/ Ipratropium (Duoneb) 3 ml Q2H RESP THERAPY PRN HHN SHORTNESS OF BREATH Last administered on 11/23/18at 06:30; Admin Dose 3 ML; Start 11/20/18 at 01:30 Vancomycin HCl (Vanco Iv Per Pharmacy) VANCOMYCIN PER PHARMACY PER PROTOCOL XX ; Start 11/20/18 at 01:30 Budesonide (Pulmicort (Neb)) 0.5 mg Q12 INH Last administered on 11/23/18at 09:22; Admin Dose 0.5 MG; Start 11/20/18 at 09:00 Lansoprazole (Prevacid) 30 mg DAILY@0600 GTB Last administered on 11/23/18at 06:09; Admin Dose 30 MG; Start 11/20/18 at 09:00 Diagnostic Test (Pha) (Accu-Chek) 1 ea 02 XX ; Start 11/21/18 at 02:00 Insulin Aspart (Novolog Insulin Pen) NOVOLOG *MILD* ALGORI... Q6 SC ; Start 11/20/18 at 12:00 Cefepime HCl 50 ml @ 100 mls/hr Q12 IVPB Last administered on 11/23/18at 09:52; Admin Dose 100 MLS/HR; Start 11/20/18 at 09:00 Miscellaneous Information 1 ea NOTE XX ; Start 11/20/18 at 09:00 Glucose (Glutose) 15 gm Q15M PRN PO DECREASED GLUCOSE; Start 11/20/18 at 09:00 Glucose (Glutose) 22.5 gm Q15M PRN PO DECREASED GLUCOSE; Start 11/20/18 at 09:00 Dextrose (D50w Syringe) 25 ml Q15M PRN IV DECREASED GLUCOSE; Start 11/20/18 at 09:00 Dextrose (D50w Syringe) 50 ml Q15M PRN IV DECREASED GLUCOSE; Start 11/20/18 at 09:00 Glucagon (Glucagen) 1 mg Q15M PRN IM DECREASED GLUCOSE; Start 11/20/18 at 09:00 Glucose (Glutose) 15 gm Q15M PRN BUCCAL DECREASED GLUCOSE; Start 11/20/18 at 09:00 Sodium Chloride 1,000 ml @ 60 mls/hr [id number] IV Last administered on 11/22/18at 14:48; Admin Dose 60 MLS/HR; Start 11/20/18 at 13:00 Ondansetron HCl (Zofran Inj) 4 mg Q4 PRN IV NAUSEA/VOMITING Last administered on 5/26/19at 09:11; Admin Dose 4 MG; Start 11/20/18 at 16:30 Guaifenesin/ Dextromethorphan (Robitussin Dm Liquid Cup) 10 ml Q4 PRN PO COUGH; Start 11/20/18 at 16:30 Ipratropium [place] (Atrovent 0.02% (Neb)) 0.5 mg Q8H RESP THERAPY HHN Last administered on 11/23/18 07:38; Admin Dose 0.5 MG; Start 11/21/18 at 00:00 Gabapentin (Neurontin) 600 mg BID GTB Last administered on 11/23/18 08:31; Admin Dose 600 MG; Start 11/20/18 at 21:00 Glycopyrrolate (Robinul) 1 mg BID WITH MEALS GTB Last administered on 11/23/18 08:30; Admin Dose 1 MG; Start 11/20/18 at 19:00 Montelukast Sodium (Singulair) 10 mg QHS GTB Last administered on 11/22/18 21:57; Admin Dose 10 MG; Start 11/20/18 at 21:00 Sertraline HCl (Zoloft) 25 mg DAILY GTB Last administered on 11/23/18 08:30; Admin Dose 25 MG; Start 11/21/18 at 09:00 Zinc Oxide (Zinc Oxide Oint) 1 applic DAILY TOP Last administered on 11/23/18 08:47; Admin Dose 1 APPLIC; Start 11/21/18 at 09:00 Enoxaparin Sodium (Lovenox) 40 mg DAILY SC Last administered on 11/23/18 08:33; Admin Dose 40 MG; Start 11/22/18 at 09:00 Vancomycin HCl 100 ml @ 100 mls/hr Q12H IVPB Last administered on 11/23/18 10:50; Admin Dose 100 MLS/HR; Start 11/22/18 at 11:00 Metoprolol Tartrate (Lopressor) 12.5 mg TID GTB Last administered on 11/23/18 08:31; Admin Dose 12.5 MG; Start 11/22/18 at 09:00 Buspirone HCl (Buspar) 15 mg TID PRN GTB ANXIETY; Start 11/23/18 at 11:00 ELOY GEE MD November 23, 2018 10:57
[2018-11-23] MEDS: BUSPIRONE 10 MG TAB GTB PRN ×2 (14:33→22:44)
[2018-11-23] MEDS: MONTELUKAST 10 MG TAB GTB SCH (20:59)
[2018-11-24] VITALS (25 sets, daily range): BP systolic 112–187; BP diastolic 60–95; PULSE 69–103; RESP 17–24
[2018-11-24] MEDS: ALBUTEROL/IPRATROPIUM (NEB) 3 ML AMP HHN PRN ×2 (02:04→05:13)
[2018-11-24] MEDS: INSULIN ASPART [NOVOLOG] 3 ML PEN SC SCH ×4 (05:36→18:00)
[2018-11-24] MEDS: LANSOPRAZOLE 30 MG CAP GTB SCH (05:36)
[2018-11-24] MEDS: GABAPENTIN 300 MG CAP GTB SCH ×2 (08:28→20:45)
[2018-11-24] MEDS: METOPROLOL 25 MG TAB GTB SCH ×3 (08:29→20:45)
[2018-11-24] MEDS: SERTRALINE 50 MG TAB GTB SCH (08:30)
[2018-11-24] MEDS: GLYCOPYRROLATE 1 MG TAB GTB SCH ×2 (08:30→17:04)
[2018-11-24] MEDS: BUSPIRONE 10 MG TAB GTB PRN ×3 (08:30→23:18)
[2018-11-24] MEDS: CEFEPIME 1GM/50 ML (PMX) 50 ML IVPB SCH ×2 (08:41→20:46)
[2018-11-24] MEDS: BUDESONIDE (NEB) 0.5MG/2ML AMP INH SCH ×2 (08:42→20:03)
[2018-11-24] MEDS: IPRATROPIUM (NEB) 0.5 MG/2.5 ML AMP HHN SCH ×3 (08:42→23:27)
[2018-11-24] MEDS: ENOXAPARIN 40 MG/0.4 ML SYG SC SCH (08:51)
--- NOTE | 2018-11-24 10:17 | CONS ---
Assessment/Plan Assessment/Plan Assessment/Plan (Daily) Ventilator setting; AC of 20, tidal volume 450, PEEP of 5, 60% FiO2. Assessment and recommendations; 1. Patient with history of VDRF with history of pneumothorax complicated by failure of right lung to reexpand status post chest wall packing admitted for severe hypoxemia and hypercapnia. Possibly superimposed pneumonia, difficult to make out on a background of significant fibrotic lung disease. Patient however currently on appropriate medical antimicrobial regimen. 2. Underlying anxiety disorder. 3. History of COPD, peripheral neuropathy and hypertension. Continue current supportive care. Obtain follow-up ABG. Further recommendations once ABG is performed. Continue local wound care involving right chest. Consultation Date/Type/Reason Admit Date/Time November 19, 2018 at 23:35 Initial Consult Date 11/21/18 Type of Consult Pulmonary Patient is a 63-year-old male who has been [facility]. Patient has a history of right VATS surgery with severe volume loss on the right side. Patient also has advanced encephalopathy and was unresponsive at examination. Patient however did not appear to be in any distress. Past medical history; 1. History of VDRF 2. Tracheostomy and G-tube placement. 3. Extensive right VATS. 4. Severe COPD with bullous emphysema. 5. Pulmonary fibrosis. 6. Hypertension and diabetes. 7. Chronic anemia. Medications; reviewed. Allergies; as outlined above. Social history, family history, occupational history is not available. Review of system; unable to be obtained. General exam; elderly male, on ventilator via tracheostomy, unresponsive, currently in no distress. Date/Time of Note DATE: 11/24/18 TIME: 10:15 24 HR Interval Summary Free Text/Dictation Patient's condition is fairly stable. Has remained hemodynamically stable. Denies any shortness of breath at rest. General exam; elderly lady, on ventilator via tracheostomy, awake and alert. Currently in no distress. Exam/Review of Systems Exam Vitals Vital Signs Date Temp Pulse Resp B/P (MAP) Pulse Ox O2 O2 Flow FiO2 Time Delivery Rate 11/24/18 90 20 100 50 08:43 11/24/18 98.3 140/71 07:45 (94) 11/22/18 Mechanical 15:44 Ventilator Intake and Output 11/23/18 11/23/18 11/24/18 1515:00 23:00 07:00 IntakeIntake Total 760 ml 1220 ml BalanceBalance 760 ml 1220 ml Exam H ENT exam; supple neck, no JVD. No lymphadenopathy. Midline trachea. No thyromegaly. Tracheostomy placed. Patient has fair dentition. No neck masses. Chest exam; diminished breath sounds bilaterally. Dressing applied to right lateral chest wall. S1-S2 audible, no murmurs. Abdomen exam; soft, no organomegaly. Bowel sounds audible. Extremity exam; no peripheral edema clubbing. [employer] exam; no focal deficit. Results Result Diagram: 11/24/18 0527 11/22/18 0634 Results 24hrs Laboratory Tests Test 11/23/18 12:47 11/23/18 17:09 11/24/18 00:52 11/24/18 05:27 Bedside Glucose 114 105 99 White Blood Count 10.1 # Red Blood Count 2.76 L Hemoglobin 8.6 L Hematocrit 28.7 L Mean Corpuscular 104.0 H Volume Mean Corpuscular 31.2 Hemoglobin Mean Corpuscular 30.0 L Hemoglobin Concent Red Cell 13.2 Distribution Width Platelet Count 315 Mean Platelet Volume 10.4 Immature 0.600 H Granulocytes % Neutrophils % 84.4 H Lymphocytes % 9.1 L Monocytes % 4.8 Eosinophils % 0.9 Basophils % 0.2 Nucleated Red Blood 0.0 Cells % Immature 0.060 H Granulocytes # Neutrophils # 8.6 H Lymphocytes # 0.9 Monocytes # 0.5 Eosinophils # 0.1 Basophils # 0.0 Nucleated Red Blood 0.0 Cells # Test 11/24/18 05:35 Bedside Glucose 110 Medications Medication Current Medications IV Flush (NS 3 ml) 3 ml PER PROTOCOL IV ; Start 11/20/18 at 01:30 Acetaminophen (Tylenol Supp) [address] .PAIN 1-3 OR TEMP; Start 11/20/18 at 01:30 Albuterol/ Ipratropium (Duoneb) 3 ml Q2H RESP THERAPY PRN HHN SHORTNESS OF BREATH Last administered on 11/24/18at 05:13; Admin Dose 3 ML; Start 11/20/18 at 01:30 Budesonide (Pulmicort (Neb)) 0.5 mg Q12 INH Last administered on 11/24/18at 08:42; Admin Dose 0.5 MG; Start 11/20/18 at 09:00 Lansoprazole (Prevacid) 30 mg DAILY@0600 GTB Last administered on 11/24/18at 05:36; Admin Dose 30 MG; Start 11/20/18 at 09:00 Insulin Aspart (Novolog Insulin Pen) NOVOLOG *MILD* ALGORI... Q6 SC ; Start at 12:00 Cefepime HCl 50 ml @ 100 mls/hr Q12 IVPB Last administered on 11/24/18at 08:41; Admin Dose 100 MLS/HR; Start 11/20/18 at 09:00 Miscellaneous Information 1 ea NOTE XX ; Start 11/20/18 at 09:00 Glucose (Glutose) 15 gm Q15M PRN PO DECREASED GLUCOSE; Start 11/20/18 at 09:00 Glucose (Glutose) 22.5 gm Q15M PRN PO DECREASED GLUCOSE; Start 11/20/18 at 09:00 Dextrose (D50w Syringe) 25 ml Q15M PRN IV DECREASED GLUCOSE; Start 11/20/18 at 09:00 Dextrose (D50w Syringe) 50 ml Q15M PRN IV DECREASED GLUCOSE; Start 11/20/18 at 09:00 Glucagon (Glucagen) 1 mg Q15M PRN IM DECREASED GLUCOSE; Start 11/20/18 at 09:00 Glucose (Glutose) 15 gm Q15M PRN BUCCAL DECREASED GLUCOSE; Start 11/20/18 at 09:00 Ondansetron HCl (Zofran Inj) 4 mg Q4 PRN IV NAUSEA/VOMITING Last administered on 11/21/18at 09:11; Admin Dose 4 MG; Start 11/20/18 at 16:30 Guaifenesin/ Dextromethorphan (Robitussin Dm Liquid Cup) 10 ml Q4 PRN PO COUGH; Start 11/20/18 at 16:30 Ipratropium [place] (Atrovent 0.02% (Neb)) 0.5 mg Q8H RESP THERAPY HHN Last administered on 11/24/18at 08:42; Admin Dose 0.5 MG; Start 11/21/18 at 00:00 Gabapentin (Neurontin) 600 mg BID GTB Last administered on 11/24/18at 08:28; Admin Dose 600 MG; Start 11/20/18 at 21:00 Glycopyrrolate (Robinul) 1 mg BID WITH MEALS GTB Last administered on 08:30; Admin Dose 1 MG; Start 11/20/18 at 19:00 Montelukast Sodium (Singulair) 10 mg QHS GTB Last administered on 11/23/18 20:59; Admin Dose 10 MG; Start 11/20/18 at 21:00 Sertraline HCl (Zoloft) 25 mg DAILY GTB Last administered on 11/24/18 08:30; Admin Dose 25 MG; Start 11/21/18 at 09:00 Zinc Oxide (Zinc Oxide Oint) 1 applic DAILY TOP Last administered on 11/23/18 08:47; Admin Dose 1 APPLIC; Start 11/21/18 at 09:00 Enoxaparin Sodium (Lovenox) 40 mg DAILY SC Last administered on 11/24/18 08:51; Admin Dose 40 MG; Start 11/22/18 at 09:00 Metoprolol Tartrate (Lopressor) 12.5 mg TID GTB Last administered on 11/24/18 08:29; Admin Dose 12.5 MG; Start 11/22/18 at 09:00 Buspirone HCl (Buspar) 15 mg TID PRN GTB ANXIETY Last administered on 11/24/18 08:30; Admin Dose 15 MG; Start 11/23/18 at 11:00 FRANK JURADO November 24, 2018 10:17
[2018-11-24] MEDS: ZINC OXIDE 20% 30 GM OINT TOP SCH (10:27)
--- NOTE | 2018-11-24 11:34 | PN ---
Date/Time of Note Date/Time of Note DATE: 11/24/18 TIME: 11:34 Assessment/Plan VTE Prophylaxis Risk score (from Ns)>0 risk: 11 SCD applied (from Ns): Yes Pharmacological prophylaxis: LMWH Lines/Catheters IV Catheter Type (from Nrs): [place] Assessment/Plan Assessment/Plan 1. Acute on chronic respiratory failure, vent dependent - Pulmonology on board and weaning FIO2 as tolerated. continue vent management - nebs PRN - continue antibiotics - repeat ABG ordered 2. h/o recent pneumothorax status post VATS procedure 3. Chronic chest wall wound - wound care consulted 4. Chronic COPD - IV antibiotics and Nebs on board 5. Type 2 diabetes - A1c noted 6. Hypertension - stable 7. Dysphagia - speech evaluation appreciated - continue tube feeds 8. Bronchopleural fistula s/p surgery 9. Anxiety - refusing benzos - adjusted Buspar dose 10. Disposition - continue vent management per Pulm. Once stable, will d/c to SNF Result Diagram: 11/24/18 0527 11/22/18 0634 Results 24hrs Laboratory Tests Test 11/23/18 12:47 11/23/18 17:09 11/24/18 00:52 11/24/18 05:27 Bedside Glucose 114 105 99 White Blood Count 10.1 # Red Blood Count 2.76 L Hemoglobin 8.6 L Hematocrit 28.7 L Mean Corpuscular 104.0 H Volume Mean Corpuscular 31.2 Hemoglobin Mean Corpuscular 30.0 L Hemoglobin Concen t Red Cell 13.2 Distribution Width Platelet Count 315 Mean Platelet 10.4 Volume Immature 0.600 H Granulocytes % Neutrophils % 84.4 H Lymphocytes % 9.1 L Monocytes % 4.8 Eosinophils % 0.9 Basophils % 0.2 Nucleated Red 0.0 Blood Cells % Immature 0.060 H Granulocytes # Neutrophils # 8.6 H Lymphocytes # 0.9 Monocytes # 0.5 Eosinophils # 0.1 Basophils # 0.0 Nucleated Red 0.0 Blood Cells # Test 11/24/18 05:35 11/24/18 10:13 Bedside Glucose 110 Blood Gas Blood capillary Specimen Source Arterial Blood 11/24/2018 10:39: Date Drawn 19 AM Arterial Blood pH 7.447 (Temp corrected) Arterial Blood 65.0 H pCO2 (Temp correct) Arterial Blood 53.3 *L pO2 (Temp corrected) Arterial Blood 43.9 *H HCO3 Arterial Blood 17.4 H Base Excess Arterial Blood 88.4 L Oxygen Saturation Jon Test ACCEPTAB Arterial Blood Right Radial Gas Puncture Site Arterial 0.2 Blood Carboxyhemo globin Arterial Blood 0.1 Methemoglobin Blood Gas A-a O2 230.1 H Differential Oxyhemoglobin 88.1 L Percent Blood Gas 37.0 Temperature Blood Gas 20.0 Respiration Rate Blood Gas Actual 20 Respiration Rate Blood Gas VENT - AC Modality FiO2 50.0 Blood Gas Tidal 450.0 Volume Blood Gas Low 5.0 PEEP Setting Blood Gas TM Notified Whom Blood Gas 11/24/2018 10:54: Notified Time 49 AM Subjective 24 Hr Interval Summary Free Text/Dictation Patient still complaining of shortness of breath and discussed her anxiety playing a role in her SOB. Exam/Review of Systems Exam Vitals Vital Signs Date Temp Pulse Resp B/P (MAP) Pulse Ox O2 O2 Flow FiO2 Time Delivery Rate 11/24/18 50 09:15 11/24/18 90 20 100 08:43 11/24/18 98.3 140/71 07:45 (94) 11/22/18 Mechanical 15:44 Ventilator Intake and Output 11/23/18 11/23/18 11/24/18 1515:00 23:00 07:00 IntakeIntake Total 760 ml 1220 ml BalanceBalance 760 ml 1220 ml Exam General: Patient appears comfortable but anxious Neck: Supple. trach in place Chest: Nontender, dressing right lateral chest wall Lungs: Clear to auscultation bilaterally, diminished, no wheezing or rhonchi Heart: Normal S1-S2, Regular rhythm and rate. No murmur, S3, or S4 Abdomen: Soft , nontender, nondistended , bowel sounds are present. No guarding no rebound tenderness Extremities: Normal to inspection, no edema no cyanosis Skin: no rashes or lesions Results Results 24hrs Laboratory Tests Test 11/23/18 12:47 11/23/18 17:09 11/24/18 00:52 11/24/18 05:27 Bedside Glucose 114 105 99 White Blood Count 10.1 # Red Blood Count 2.76 L Hemoglobin 8.6 L Hematocrit 28.7 L Mean Corpuscular 104.0 H Volume Mean Corpuscular 31.2 Hemoglobin Mean Corpuscular 30.0 L Hemoglobin Concen t Red Cell 13.2 Distribution Width Platelet Count 315 Mean Platelet 10.4 Volume Immature 0.600 H Granulocytes % Neutrophils % 84.4 H Lymphocytes % 9.1 L Monocytes % 4.8 Eosinophils % 0.9 Basophils % 0.2 Nucleated Red 0.0 Blood Cells % Immature 0.060 H Granulocytes # Neutrophils # 8.6 H Lymphocytes # 0.9 Monocytes # 0.5 Eosinophils # 0.1 Basophils # 0.0 Nucleated Red 0.0 Blood Cells # Test 11/24/18 05:35 11/24/18 10:13 Bedside Glucose 110 Blood Gas Blood capillary Specimen Source Arterial Blood 11/24/2018 10:39: Date Drawn 19 AM Arterial Blood pH 7.447 (Temp corrected) Arterial Blood 65.0 H pCO2 (Temp correct) Arterial Blood 53.3 *L pO2 (Temp corrected) Arterial Blood 43.9 *H HCO3 Arterial Blood 17.4 H Base Excess Arterial Blood 88.4 L Oxygen Saturation Jon Test ACCEPTAB Arterial Blood Right Radial Gas Puncture Site Arterial 0.2 Blood Carboxyhemo globin Arterial Blood 0.1 Methemoglobin Blood Gas A-a O2 230.1 H Differential Oxyhemoglobin 88.1 L Percent Blood Gas 37.0 Temperature Blood Gas 20.0 Respiration Rate Blood Gas Actual 20 Respiration Rate Blood Gas VENT - AC Modality FiO2 50.0 Blood Gas Tidal 450.0 Volume Blood Gas Low 5.0 PEEP Setting Blood Gas TM Notified Whom Blood Gas 11/24/2018 10:54: Notified Time 49 AM Medications Medication Current Medications IV Flush (NS 3 ml) 3 ml PER PROTOCOL IV ; Start 11/20/18 at 01:30 Acetaminophen (Tylenol Supp) 650 mg Q6H PRN [place] .PAIN 1-3 OR TEMP; Start 11/20/18 at 01:30 Albuterol/ Ipratropium (Duoneb) 3 ml Q2H RESP THERAPY PRN HHN SHORTNESS OF BREATH Last administered on 11/24/18at 05:13; Admin Dose 3 ML; Start 11/20/18 at 01:30 Budesonide (Pulmicort (Neb)) 0.5 mg Q12 INH Last administered on 11/24/18at 08:42; Admin Dose 0.5 MG; Start 11/20/18 at 09:00 Lansoprazole (Prevacid) 30 mg DAILY@0600 GTB Last administered on 11/24/18at 05:36; Admin Dose 30 MG; Start 11/20/18 at 09:00 Insulin Aspart (Novolog Insulin Pen) NOVOLOG *MILD* ALGORI... Q6 SC ; Start 11/20/18 at 12:00 Cefepime HCl 50 ml @ 100 mls/hr Q12 IVPB Last administered on 11/24/18at 08:41; Admin Dose 100 MLS/HR; Start 11/20/18 at 09:00 Miscellaneous Information 1 ea NOTE XX ; Start 11/20/18 at 09:00 Glucose (Glutose) 15 gm Q15M PRN PO DECREASED GLUCOSE; Start 11/20/18 at 09:00 Glucose (Glutose) 22.5 gm Q15M PRN PO DECREASED GLUCOSE; Start 11/20/18 at 09:00 Dextrose (D50w Syringe) 25 ml Q15M PRN IV DECREASED GLUCOSE; Start 11/20/18 at 09:00 Dextrose (D50w Syringe) 50 ml Q15M PRN IV DECREASED GLUCOSE; Start 11/20/18 at 09:00 Glucagon (Glucagen) 1 mg Q15M PRN IM DECREASED GLUCOSE; Start 11/20/18 at 09:00 Glucose (Glutose) 15 gm Q15M PRN BUCCAL DECREASED GLUCOSE; Start 11/20/18 at 09:00 Ondansetron HCl (Zofran Inj) 4 mg Q4 PRN IV NAUSEA/VOMITING Last administered on 11/21/18at 09:11; Admin Dose 4 MG; Start 11/20/18 at 16:30 Guaifenesin/ Dextromethorphan (Robitussin Dm Liquid Cup) 10 ml Q4 PRN PO COUGH; Start 11/20/18 at 16:30 Ipratropium [place] (Atrovent 0.02% (Neb)) 0.5 mg Q8H RESP THERAPY HHN Last administered on 11/24/18at 08:42; Admin Dose 0.5 MG; Start 11/21/18 at 00:00 Gabapentin (Neurontin) 600 mg BID GTB Last administered on 11/24/18at 08:28; Admin Dose 600 MG; Start 11/20/18 at 21:00 Glycopyrrolate (Robinul) 1 mg BID WITH MEALS GTB Last administered on 11/24/18at 08:30; Admin Dose 1 MG; Start 5/25/19 at 19:00 Montelukast Sodium (Singulair) 10 mg QHS GTB Last administered on 11/23/18 20:59; Admin Dose 10 MG; Start 11/20/18 at 21:00 Sertraline HCl (Zoloft) 25 mg DAILY GTB Last administered on 11/24/18 08:30; Admin Dose 25 MG; Start 11/21/18 at 09:00 Zinc Oxide (Zinc Oxide Oint) 1 applic DAILY TOP Last administered on 11/24/18 10:27; Admin Dose 1 APPLIC; Start 11/21/18 at 09:00 Enoxaparin Sodium (Lovenox) 40 mg DAILY SC Last administered on 11/24/18 08:51; Admin Dose 40 MG; Start 11/22/18 at 09:00 Metoprolol Tartrate (Lopressor) 12.5 mg TID GTB Last administered on 11/24/18 08:29; Admin Dose 12.5 MG; Start 11/22/18 at 09:00 Buspirone HCl (Buspar) 15 mg TID PRN GTB ANXIETY Last administered on 11/24/18 08:30; Admin Dose 15 MG; Start 11/23/18 at 11:00 ELOY GEE MD November 24, 2018 11:34
[2018-11-24] MEDS: MONTELUKAST 10 MG TAB GTB SCH (20:45)
[2018-11-25] VITALS (24 sets, daily range): BP systolic 106–177; BP diastolic 61–85; PULSE 63–92; RESP 17–23
[2018-11-25] MEDS: ALBUTEROL/IPRATROPIUM (NEB) 3 ML AMP HHN PRN ×4 (04:01→21:22)
[2018-11-25] MEDS: LANSOPRAZOLE 30 MG CAP GTB SCH (05:47)
[2018-11-25] MEDS: INSULIN ASPART [NOVOLOG] 3 ML PEN SC SCH ×5 (05:49→23:55)
[2018-11-25] MEDS: BUSPIRONE 10 MG TAB GTB PRN ×3 (06:55→21:08)
[2018-11-25] MEDS: IPRATROPIUM (NEB) 0.5 MG/2.5 ML AMP HHN SCH ×3 (07:52→23:37)
[2018-11-25] MEDS: BUDESONIDE (NEB) 0.5MG/2ML AMP INH SCH ×2 (07:52→20:03)
[2018-11-25] MEDS: CEFEPIME 1GM/50 ML (PMX) 50 ML IVPB SCH ×2 (08:27→21:08)
[2018-11-25] MEDS: METOPROLOL 25 MG TAB GTB SCH ×3 (08:28→21:07)
[2018-11-25] MEDS: GLYCOPYRROLATE 1 MG TAB GTB SCH ×2 (08:29→17:42)
[2018-11-25] MEDS: SERTRALINE 50 MG TAB GTB SCH (08:29)
[2018-11-25] MEDS: ZINC OXIDE 20% 30 GM OINT TOP SCH (08:29)
[2018-11-25] MEDS: GABAPENTIN 300 MG CAP GTB SCH ×2 (08:29→21:07)
[2018-11-25] MEDS: ENOXAPARIN 40 MG/0.4 ML SYG SC SCH (08:46)
--- NOTE | 2018-11-25 11:01 | CONS ---
Assessment/Plan Assessment/Plan Assessment/Plan (Daily) Ventilator setting; AC of 20, tidal volume 450, PEEP of 5, 40% FiO2. Assessment and recommendations; 1. Patient with history of VDRF due to history of right pneumothorax complicated by failure of lung to reexpand status post chest wall packing admitted for severe hypoxemia with a history of severe hypercapnic respiratory failure as well. 2. Possibly superimposed pneumonia. Currently on appropriate and empiric antimicrobial regimen. 3. Underlying anxiety disorder. 4. Status post right VATS. Continue with supportive care. Increase FiO2 60%. Overall prognosis is guarded. Consultation Date/Type/Reason Admit Date/Time November 19, 2018 at 23:35 Initial Consult Date 11/21/18 Type of Consult Pulmonary Patient is a 63-year-old male who has been [facility] hospital [facility] with hypoxemia. Patient has a history of right VATS surgery with severe volume loss on the right side. Patient also has advanced encephalopathy and was unresponsive at examination. Patient however did not appear to be in any distress. Past medical history; 1. History of VDRF 2. Tracheostomy and G-tube placement. 3. Extensive right VATS. 4. Severe COPD with bullous emphysema. 5. Pulmonary fibrosis. 6. Hypertension and diabetes. 7. Chronic anemia. Medications; reviewed. Allergies; as outlined above. Social history, family history, occupational history is not available. Review of system; unable to be obtained. General exam; elderly male, on ventilator via tracheostomy, unresponsive, currently in no distress. Date/Time of Note DATE: 11/25/18 TIME: 10:58 24 HR Interval Summary Free Text/Dictation Patient's condition is stable. Has remained hemodynamically stable. General exam; elderly woman, on ventilator via tracheostomy, awake and alert. Currently in no distress. Exam/Review of Systems Exam Vitals Vital Signs Date Temp Pulse Resp B/P (MAP) Pulse Ox O2 O2 Flow FiO2 Time Delivery Rate 11/25/18 64 20 96 40 09:40 11/25/18 98.3 142/77 08:12 (98) 11/22/18 Mechanical 15:44 Ventilator Intake and Output 11/24/18 11/24/18 11/25/18 1515:00 23:00 07:00 IntakeIntake Total 750 ml 700 ml BalanceBalance 750 ml 700 ml Exam HEENT exam; supple neck, no JVD. No lymphadenopathy. Midline trachea. No thyromegaly. Patient has fair dentition. Tracheostomy in place. Insertion site is clean. Chest exam; diminished breath sounds throughout. S1-S2 audible, no murmurs. Dressing applied to right lateral chest wall. Abdomen exam; soft, nontender. No organomegaly. Nondistended. Bowel sounds audible. G-tube in place. Extremity exam; no peripheral edema. PATIENT NAVIGATOR exam; no focal deficit. Results Result Diagram: 11/25/18 0550 11/22/18 0634 Results 24hrs Laboratory Tests Test 11/24/18 12:00 11/25/18 00:08 11/25/18 05:49 11/25/18 05:50 Bedside Glucose 108 114 107 White Blood Count 12.3 #H Red Blood Count 3.00 L Hemoglobin 9.3 L Hematocrit 31.0 L Mean Corpuscular 103.3 H Volume Mean Corpuscular 31.0 Hemoglobin Mean Corpuscular 30.0 L Hemoglobin Concent Red Cell 13.3 Distribution Width Platelet Count 330 Mean Platelet Volume 10.3 Immature 0.900 H Granulocytes % Neutrophils % 85.7 H Lymphocytes % 7.1 L Monocytes % 4.5 Eosinophils % 1.5 Basophils % 0.3 Nucleated Red Blood 0.0 Cells % Immature 0.110 H Granulocytes # Neutrophils # 10.6 H Lymphocytes # 0.9 Monocytes # 0.6 Eosinophils # 0.2 Basophils # 0.0 Nucleated Red Blood 0.0 Cells # Medications Medication Current Medications IV Flush (NS 3 ml) 3 ml PER PROTOCOL IV ; Start 11/20/18 at 01:30 Acetaminophen (Tylenol Supp) 650 mg Q6H PRN NE .PAIN 1-3 OR TEMP; Start 9 at 01:30 Albuterol/ Ipratropium (Duoneb) 3 ml Q2H RESP THERAPY PRN HHN SHORTNESS OF BREATH Last administered on 11/25/18at 04:01; Admin Dose 3 ML; Start 11/20/18 at 01:30 Budesonide (Pulmicort (Neb)) 0.5 mg Q12 INH Last administered on 11/25/18at 07:52; Admin Dose 0.5 MG; Start 11/20/18 at 09:00 Lansoprazole (Prevacid) 30 mg DAILY@0600 GTB Last administered on 11/25/18at 05:47; Admin Dose 30 MG; Start 11/20/18 at 09:00 Insulin Aspart (Novolog Insulin Pen) NOVOLOG *MILD* ALGORI... Q6 SC ; Start 11/20/18 at 12:00 Cefepime HCl 50 ml @ 100 mls/hr Q12 IVPB Last administered on 11/25/18 08:27; Admin Dose 100 MLS/HR; Start 11/20/18 at 09:00 Miscellaneous Information 1 ea NOTE XX ; Start 11/20/18 at 09:00 Glucose (Glutose) 15 gm Q15M PRN PO DECREASED GLUCOSE; Start 11/20/18 at 09:00 Glucose (Glutose) 22.5 gm Q15M PRN PO DECREASED GLUCOSE; Start 11/20/18 at 09:00 Dextrose (D50w Syringe) 25 ml Q15M PRN IV DECREASED GLUCOSE; Start 11/20/18 at 09:00 Dextrose (D50w Syringe) 50 ml Q15M PRN IV DECREASED GLUCOSE; Start 11/20/18 at 09:00 Glucagon (Glucagen) 1 mg Q15M PRN IM DECREASED GLUCOSE; Start 11/20/18 at 09:00 Glucose (Glutose) 15 gm Q15M PRN BUCCAL DECREASED GLUCOSE; Start 11/20/18 at 09:00 Ondansetron HCl (Zofran Inj) 4 mg Q4 PRN IV NAUSEA/VOMITING Last administered on 11/21/18at 09:11; Admin Dose 4 MG; Start 11/20/18 at 16:30 Guaifenesin/ Dextromethorphan (Robitussin Dm Liquid Cup) 10 ml Q4 PRN PO COUGH; Start 11/20/18 at 16:30 Ipratropium [place] (Atrovent 0.02% (Neb)) 0.5 mg Q8H RESP THERAPY HHN Last administered on 11/25/18 07:52; Admin Dose 0.5 MG; Start 11/21/18 at 00:00 Gabapentin (Neurontin) 600 mg BID GTB Last administered on 11/25/18 08:29; Admin Dose 600 MG; Start 11/20/18 at 21:00 Glycopyrrolate (Robinul) 1 mg BID WITH MEALS GTB Last administered on 11/25/18 08:29; Admin Dose 1 MG; Start 11/20/18 at 19:00 Montelukast Sodium (Singulair) 10 mg QHS GTB Last administered on 11/24/18 20:45; Admin Dose 10 MG; Start 11/20/18 at 21:00 Sertraline HCl (Zoloft) 25 mg DAILY GTB Last administered on 11/25/18 08:29; Admin Dose 25 MG; Start 11/21/18 at 09:00 Zinc Oxide (Zinc Oxide Oint) 1 applic DAILY TOP Last administered on 11/25/18 08:29; Admin Dose 1 APPLIC; Start 11/21/18 at 09:00 Enoxaparin Sodium (Lovenox) 40 mg DAILY SC Last administered on 11/25/18 08:46; Admin Dose 40 MG; Start 11/22/18 at 09:00 Metoprolol Tartrate (Lopressor) 12.5 mg TID GTB Last administered on 11/25/18 08:28; Admin Dose 12.5 MG; Start 11/22/18 at 09:00 Buspirone HCl (Buspar) 15 mg TID PRN GTB ANXIETY Last administered on 11/25/18 06:55; Admin Dose 15 MG; Start 11/23/18 at 11:00 FRANK JURADO November 25, 2018 11:01
--- NOTE | 2018-11-25 16:02 | PN ---
Date/Time of Note Date/Time of Note DATE: 11/25/18 TIME: 15:56 Assessment/Plan VTE Prophylaxis Risk score (from Ns)>0 risk: 5 SCD applied (from Ns): Yes Pharmacological prophylaxis: LMWH Lines/Catheters IV [facility]from [facility] Saline Lock Assessment/Plan Assessment/Plan 1. Acute on chronic respiratory failure, vent dependent - Pulmonology on board and weaning FIO2 as tolerated. continue vent management. Will be accepted to SNF when FIO2 is at 40% - nebs PRN - continue antibiotics per Pulm recommendations 2. h/o recent pneumothorax status post VATS procedure 3. Chronic chest wall wound - wound care consultation appreciated 4. Chronic COPD - IV antibiotics and Nebs on board 5. Type 2 diabetes - A1c noted 6. Hypertension - stable 7. Dysphagia - speech evaluation appreciated - continue tube feeds 8. Bronchopleural fistula s/p surgery 9. Anxiety - refusing benzos - adjusted Buspar dose 10. Disposition - continue vent management per Pulm. Once at FIO2 40%, will d/c to SNF Result Diagram: 11/25/18 0550 11/22/18 0634 Results 24hrs Laboratory Tests Test 11/25/18 00:08 11/25/18 05:49 11/25/18 05:50 11/25/18 11:35 Bedside Glucose 114 107 114 White Blood Count 12.3 #H Red Blood Count 3.00 L Hemoglobin 9.3 L Hematocrit 31.0 L Mean Corpuscular 103.3 H Volume Mean Corpuscular 31.0 Hemoglobin Mean Corpuscular 30.0 L Hemoglobin Concent Red Cell 13.3 Distribution Width Platelet Count 330 Mean Platelet Volume 10.3 Immature 0.900 H Granulocytes % Neutrophils % 85.7 H Lymphocytes % 7.1 L Monocytes % 4.5 Eosinophils % 1.5 Basophils % 0.3 Nucleated Red Blood 0.0 Cells % Immature 0.110 H Granulocytes # Neutrophils # 10.6 H Lymphocytes # 0.9 Monocytes # 0.6 Eosinophils # 0.2 Basophils # 0.0 Nucleated Red Blood 0.0 Cells # Subjective 24 Hr Interval Summary Free Text/Dictation Patient denies any shortness of breath. resting comfortably but had to be increased to FIO2 60%. Exam/Review of Systems Exam Vitals Vital Signs Date Temp Pulse Resp B/P (MAP) Pulse Ox O2 O2 Flow FiO2 Time Delivery Rate 11/25/18 98.3 78 20 106/69 98 15:38 (81) 11/25/18 60 14:47 11/22/18 Mechanical 15:44 Ventilator Intake and Output 11/24/18 11/24/18 11/25/18 1414:59 22:59 06:59 IntakeIntake Total 750 ml 700 ml BalanceBalance 750 ml 700 ml Exam General: Patient appears comfortable. no acute distress Neck: Supple. trach in place Chest: Nontender, dressing right lateral chest wall Lungs: Clear to auscultation bilaterally, diminished, no wheezing or rhonchi Heart: Normal S1-S2, Regular rhythm and rate. No murmur, S3, or S4 Abdomen: Soft , nontender, nondistended , bowel sounds are present. No guarding no rebound tenderness Extremities: Normal to inspection, no edema no cyanosis Skin: no rashes or lesions Results Results 24hrs Laboratory Tests Test 11/25/18 00:08 11/25/18 05:49 11/25/18 05:50 11/25/18 11:35 Bedside Glucose 114 107 114 White Blood Count 12.3 #H Red Blood Count 3.00 L Hemoglobin 9.3 L Hematocrit 31.0 L Mean Corpuscular 103.3 H Volume Mean Corpuscular 31.0 Hemoglobin Mean Corpuscular 30.0 L Hemoglobin Concent Red Cell 13.3 Distribution Width Platelet Count 330 Mean Platelet Volume 10.3 Immature 0.900 H Granulocytes % Neutrophils % 85.7 H Lymphocytes % 7.1 L Monocytes % 4.5 Eosinophils % 1.5 Basophils % 0.3 Nucleated Red Blood 0.0 Cells % Immature 0.110 H Granulocytes # Neutrophils # 10.6 H Lymphocytes # 0.9 Monocytes # 0.6 Eosinophils # 0.2 Basophils # 0.0 Nucleated Red Blood 0.0 Cells # Medications Medication Current Medications IV Flush (NS 3 ml) 3 ml PER PROTOCOL IV ; Start 11/20/18 at 01:30 Acetaminophen (Tylenol Supp) 650 mg Q6H PRN OR .PAIN 1-3 OR TEMP; Start 11/20/18 at 01:30 Albuterol/ Ipratropium (Duoneb) 3 ml Q2H RESP THERAPY PRN HHN SHORTNESS OF BREATH Last administered on 11/25/18at 14:44; Admin Dose 3 ML; Start 11/20/18 at 01:30 Budesonide (Pulmicort (Neb)) 0.5 mg Q12 INH Last administered on 11/25/18at 07:52; Admin Dose 0.5 MG; Start 11/20/18 at 09:00 Lansoprazole (Prevacid) 30 mg DAILY@0600 GTB Last administered on 11/25/18at 05:47; Admin Dose 30 MG; Start 11/20/18 at 09:00 Insulin Aspart (Novolog Insulin Pen) NOVOLOG *MILD* ALGORI... Q6 SC ; Start 11/20/18 at 12:00 Cefepime HCl 50 ml @ 100 mls/hr Q12 IVPB Last administered on 11/25/18at 08:27; Admin Dose 100 MLS/HR; Start 11/20/18 at 09:00 Miscellaneous Information 1 ea NOTE XX ; Start 11/20/18 at 09:00 Glucose (Glutose) 15 gm Q15M PRN PO DECREASED GLUCOSE; Start 11/20/18 at 09:00 Glucose (Glutose) 22.5 gm Q15M PRN PO DECREASED GLUCOSE; Start 11/20/18 at 09:00 Dextrose (D50w Syringe) 25 ml Q15M PRN IV DECREASED GLUCOSE; Start 11/20/18 at 09:00 Dextrose (D50w Syringe) 50 ml Q15M PRN IV DECREASED GLUCOSE; Start 11/20/18 at 09:00 Glucagon (Glucagen) 1 mg Q15M PRN IM DECREASED GLUCOSE; Start 11/20/18 at 09:00 Glucose (Glutose) 15 gm Q15M PRN BUCCAL DECREASED GLUCOSE; Start 11/20/18 at 09:00 Ondansetron HCl (Zofran Inj) 4 mg Q4 PRN IV NAUSEA/VOMITING Last administered on 11/21/18at 09:11; Admin Dose 4 MG; Start 11/20/18 at 16:30 Guaifenesin/ Dextromethorphan (Robitussin Dm Liquid Cup) 10 ml Q4 PRN PO COUGH; Start 11/20/18 at 16:30 Ipratropium [place] (Atrovent 0.02% (Neb)) 0.5 mg Q8H RESP THERAPY HHN Last administered on 11/25/18at 07:52; Admin Dose 0.5 MG; Start 11/21/18 at 00:00 Gabapentin (Neurontin) 600 mg BID GTB Last administered on 11/25/18 08:29; Admin Dose 600 MG; Start 11/20/18 at 21:00 Glycopyrrolate (Robinul) 1 mg BID WITH MEALS GTB Last administered on 11/25/18 08:29; Admin Dose 1 MG; Start 11/20/18 at 19:00 Montelukast Sodium (Singulair) 10 mg QHS GTB Last administered on 11/24/18 20:45; Admin Dose 10 MG; Start 11/20/18 at 21:00 Sertraline HCl (Zoloft) 25 mg DAILY GTB Last administered on 11/25/18 08:29; Admin Dose 25 MG; Start 11/21/18 at 09:00 Zinc Oxide (Zinc Oxide Oint) 1 applic DAILY TOP Last administered on 11/25/18 08:29; Admin Dose 1 APPLIC; Start 11/21/18 at 09:00 Enoxaparin Sodium (Lovenox) 40 mg DAILY SC Last administered on 11/25/18 08:46; Admin Dose 40 MG; Start 11/22/18 at 09:00 Metoprolol Tartrate (Lopressor) 12.5 mg TID GTB Last administered on 11/25/18 12:45; Admin Dose 12.5 MG; Start 11/22/18 at 09:00 Buspirone HCl (Buspar) 15 mg TID PRN GTB ANXIETY Last administered on 11/25/18 14:41; Admin Dose 15 MG; Start 11/23/18 at 11:00 Nystatin (Nystatin Powder) 1 applic BID TOP ; Start 11/25/18 at 21:00 ELOY GEE MD November 25, 2018 16:02
[2018-11-25] MEDS: MONTELUKAST 10 MG TAB GTB SCH (21:07)
[2018-11-25] MEDS: NYSTATIN 30 GM POWDER BTL TOP SCH (21:08)
[2018-11-26] VITALS (24 sets, daily range): BP systolic 127–147; BP diastolic 61–78; PULSE 74–91; RESP 18–25
[2018-11-26] MEDS: ALBUTEROL/IPRATROPIUM (NEB) 3 ML AMP HHN PRN ×4 (03:03→18:04)
[2018-11-26] MEDS: BUSPIRONE 10 MG TAB GTB PRN ×3 (03:31→19:16)
[2018-11-26] MEDS: INSULIN ASPART [NOVOLOG] 3 ML PEN SC SCH ×2 (06:00→12:00)
[2018-11-26] MEDS: LANSOPRAZOLE 30 MG CAP GTB SCH (06:22)
[2018-11-26] MEDS: BUDESONIDE (NEB) 0.5MG/2ML AMP INH SCH ×2 (07:16→20:01)
[2018-11-26] MEDS: IPRATROPIUM (NEB) 0.5 MG/2.5 ML AMP HHN SCH ×3 (07:16→23:20)
[2018-11-26] MEDS: CEFEPIME 1GM/50 ML (PMX) 50 ML IVPB SCH ×2 (08:33→20:51)
[2018-11-26] MEDS: METOPROLOL 25 MG TAB GTB SCH ×3 (08:34→20:52)
[2018-11-26] MEDS: GLYCOPYRROLATE 1 MG TAB GTB SCH ×2 (08:34→18:59)
[2018-11-26] MEDS: GABAPENTIN 300 MG CAP GTB SCH ×2 (08:34→20:51)
[2018-11-26] MEDS: ZINC OXIDE 20% 30 GM OINT TOP SCH (08:35)
[2018-11-26] MEDS: SERTRALINE 50 MG TAB GTB SCH (08:35)
[2018-11-26] MEDS: NYSTATIN 30 GM POWDER BTL TOP SCH ×2 (08:36→20:52)
[2018-11-26] MEDS: ENOXAPARIN 40 MG/0.4 ML SYG SC SCH (08:56)
--- NOTE | 2018-11-26 10:32 | PN ---
Date/Time of Note Date/Time of Note DATE: 11/26/18 TIME: 10:30 Assessment/Plan VTE Prophylaxis Risk score (from Ns)>0 risk: 5 SCD applied (from Ns): Yes Pharmacological prophylaxis: LMWH Lines/Catheters IV Catheter Type (from Nrs): Saline Lock Assessment/Plan Assessment/Plan 1. Acute on chronic respiratory failure, vent dependent - improving. Now on FIO2 40% and will d/c tomorrow to SNF if continues to tolerate - Pulmonology on board and appreciate recommendations - nebs PRN - continue antibiotics per Pulm recommendations 2. h/o recent pneumothorax status post VATS procedure 3. Chronic chest wall wound - wound care consultation appreciated 4. Chronic COPD - IV antibiotics and Nebs on board 5. Type 2 diabetes - A1c noted 6. Hypertension - stable 7. Dysphagia - speech evaluation appreciated - continue tube feeds 8. Bronchopleural fistula s/p surgery 9. Anxiety - refusing benzos - adjusted Buspar dose 10. Disposition - If remains stable on FIO2 40% will d/c to SNF tomorrow Result Diagram: 11/26/18 0506 11/26/18 0506 Results 24hrs Laboratory Tests Test 11/25/18 11:35 11/25/18 14:03 11/25/18 17:40 11/25/18 23:52 Bedside Glucose 114 102 103 Procalcitonin 0.15 H Test 11/26/18 05:06 11/26/18 06:23 White Blood Count 10.3 Red Blood Count 3.03 L Hemoglobin 9.4 L Hematocrit 31.3 L Mean Corpuscular 103.3 H Volume Mean Corpuscular 31.0 Hemoglobin Mean Corpuscular 30.0 L Hemoglobin Concent Red Cell 13.6 Distribution Width Platelet Count 308 Mean Platelet Volume 10.4 Immature 0.600 H Granulocytes % Neutrophils % 82.8 H Lymphocytes % 8.9 L Monocytes % 5.7 Eosinophils % 1.6 Basophils % 0.4 Nucleated Red Blood 0.0 Cells % Immature 0.060 H Granulocytes # Neutrophils # 8.5 H Lymphocytes # 0.9 Monocytes # 0.6 Eosinophils # 0.2 Basophils # 0.0 Nucleated Red Blood 0.0 Cells # Sodium Level 142 Potassium Level 3.7 Chloride Level 98 Carbon Dioxide Level 39 H Anion Gap 5 Blood Urea Nitrogen 21 H Creatinine 0.51 Glucose Level 99 Calcium Level 8.7 Phosphorus Level 3.0 Magnesium Level 2.3 Albumin 2.9 L Bedside Glucose 115 Subjective 24 Hr Interval Summary Free Text/Dictation Patient denies any acute issues and appears comfortable. When discussed discharge today, got anxious and asked for d/c tomorrow. Tolerating 40% FIO2 this am Exam/Review of Systems Exam Vitals Vital Signs Date Temp Pulse Resp B/P (MAP) Pulse Ox O2 O2 Flow FiO2 Time Delivery Rate 11/26/18 90 24 97 40 09:20 11/26/18 98.8 147/72 Mechanical 08:29 (97) Ventilator Trach Collar Intake and Output 11/25/18 11/25/18 11/26/18 1515:00 23:00 07:00 IntakeIntake Total 750 ml 750 ml BalanceBalance 750 ml 750 ml Exam General: Patient appears comfortable. no acute distress Neck: Supple. trach in place Chest: Nontender, dressing right lateral chest wall Lungs: Clear to auscultation bilaterally, diminished, no wheezing or rhonchi Heart: Normal S1-S2, Regular rhythm and rate. No murmur, S3, or S4 Abdomen: Soft , nontender, nondistended , bowel sounds are present. No guarding no rebound tenderness Extremities: Normal to inspection, no edema no cyanosis Skin: no rashes or lesions Results Results 24hrs Laboratory Tests Test 11/25/18 11:35 11/25/18 14:03 11/25/18 17:40 11/25/18 23:52 Bedside Glucose 114 102 103 Procalcitonin 0.15 H Test 11/26/18 05:06 11/26/18 06:23 White Blood Count 10.3 Red Blood Count 3.03 L Hemoglobin 9.4 L Hematocrit 31.3 L Mean Corpuscular 103.3 H Volume Mean Corpuscular 31.0 Hemoglobin Mean Corpuscular 30.0 L Hemoglobin Concent Red Cell 13.6 Distribution Width Platelet Count 308 Mean Platelet Volume 10.4 Immature 0.600 H Granulocytes % Neutrophils % 82.8 H Lymphocytes % 8.9 L Monocytes % 5.7 Eosinophils % 1.6 Basophils % 0.4 Nucleated Red Blood 0.0 Cells % Immature 0.060 H Granulocytes # Neutrophils # 8.5 H Lymphocytes # 0.9 Monocytes # 0.6 Eosinophils # 0.2 Basophils # 0.0 Nucleated Red Blood 0.0 Cells # Sodium Level 142 Potassium Level 3.7 Chloride Level 98 Carbon Dioxide Level 39 H Anion Gap 5 Blood Urea Nitrogen 21 H Creatinine 0.51 Glucose Level 99 Calcium Level 8.7 Phosphorus Level 3.0 Magnesium Level 2.3 Albumin 2.9 L Bedside Glucose 115 Medications Medication Current Medications IV Flush (NS 3 ml) 3 ml PER PROTOCOL IV ; Start 11/20/18 at 01:30 Acetaminophen (Tylenol Supp) 650 mg Q6H PRN ID .PAIN 1-3 OR TEMP; Start 11/20/18 at 01:30 Albuterol/ Ipratropium (Duoneb) 3 ml Q2H RESP THERAPY PRN HHN SHORTNESS OF BREATH Last administered on 11/26/18at 03:03; Admin Dose 3 ML; Start 11/20/18 at 01:30 Budesonide (Pulmicort (Neb)) 0.5 mg Q12 INH Last administered on 11/26/18at 07:16; Admin Dose 0.5 MG; Start 11/20/18 at 09:00 Lansoprazole (Prevacid) 30 mg DAILY@0600 GTB Last administered on 11/26/18at 06:22; Admin Dose 30 MG; Start 11/20/18 at 09:00 Insulin Aspart (Novolog Insulin Pen) NOVOLOG *MILD* ALGORI... Q6 SC ; Start 10/28 11/14 at 12:00 Cefepime HCl 50 ml @ 100 mls/hr Q12 IVPB Last administered on 11/26/18at 08:33; Admin Dose 100 MLS/HR; Start 11/20/18 at 09:00 Miscellaneous Information 1 ea NOTE XX ; Start 11/20/18 at 09:00 Glucose (Glutose) 15 gm Q15M PRN PO DECREASED GLUCOSE; Start 11/20/18 at 09:00 Glucose (Glutose) 22.5 gm Q15M PRN PO DECREASED GLUCOSE; Start 11/20/18 at 09:00 Dextrose (D50w Syringe) 25 ml Q15M PRN IV DECREASED GLUCOSE; Start 11/20/18 at 09:00 Dextrose (D50w Syringe) 50 ml Q15M PRN IV DECREASED GLUCOSE; Start 11/20/18 at 09:00 Glucagon (Glucagen) 1 mg Q15M PRN IM DECREASED GLUCOSE; Start 11/20/18 at 09:00 Glucose (Glutose) 15 gm Q15M PRN BUCCAL DECREASED GLUCOSE; Start 11/20/18 at 09:00 Ondansetron HCl (Zofran Inj) 4 mg Q4 PRN IV NAUSEA/VOMITING Last administered on 11/21/18 09:11; Admin Dose 4 MG; Start 11/20/18 at 16:30 Guaifenesin/ Dextromethorphan (Robitussin Dm Liquid Cup) 10 ml Q4 PRN PO COUGH; Start 11/20/18 at 16:30 Ipratropium [place] (Atrovent 0.02% (Neb)) 0.5 mg Q8H RESP THERAPY HHN Last administered on 11/26/18 07:16; Admin Dose 0.5 MG; Start 11/21/18 at 00:00 Gabapentin (Neurontin) 600 mg BID GTB Last administered on 11/26/18 08:34; Admin Dose 600 MG; Start 11/20/18 at 21:00 Glycopyrrolate (Robinul) 1 mg BID WITH MEALS GTB Last administered on 10/29 08:34; Admin Dose 1 MG; Start 11/20/18 at 19:00 Montelukast Sodium (Singulair) 10 mg QHS GTB Last administered on 11/25/18 21:07; Admin Dose 10 MG; Start 11/20/18 at 21:00 Sertraline HCl (Zoloft) 25 mg DAILY GTB Last administered on 11/26/18 08:35; Admin Dose 25 MG; Start 11/21/18 at 09:00 Zinc Oxide (Zinc Oxide Oint) 1 applic DAILY TOP Last administered on 11/26/18 08:35; Admin Dose 1 APPLIC; Start 11/21/18 at 09:00 Enoxaparin Sodium (Lovenox) 40 mg DAILY SC Last administered on 11/26/18 08:56; Admin Dose 40 MG; Start 11/22/18 at 09:00 Metoprolol Tartrate (Lopressor) 12.5 mg TID GTB Last administered on 11/26/18 08:34; Admin Dose 12.5 MG; Start 11/22/18 at 09:00 Buspirone HCl (Buspar) 15 mg TID PRN GTB ANXIETY Last administered on 11/26/18 03:31; Admin Dose 15 MG; Start 11/23/18 at 11:00 Nystatin (Nystatin Powder) 1 applic BID TOP Last administered on 11/26/18at 08:36; Admin Dose 1 APPLIC; Start 11/25/18 at 21:00 ELOY GEE MD November 26, 2018 10:32
--- NOTE | 2018-11-26 16:00 | CONS ---
Consult Date/Type/Reason Admit Date/Time November 19, 2018 at 23:35 Initial Consult Date 11/21/18 Type of Consult Pulmonary Date/Time of Note DATE: 11/26/18 TIME: 15:58 Subjective Remains comfortable. No respiratory distress. Objective Vital Signs Date Temp Pulse Resp B/P (MAP) Pulse Ox O2 O2 Flow FiO2 Time Delivery Rate 11/26/18 98.3 90 18 133/67 97 Mechanical 15:01 (89) Ventilator Trach Collar 11/26/18 40 13:00 Intake and Output 11/25/18 11/25/18 11/26/18 1515:00 23:00 07:00 IntakeIntake Total 750 ml 750 ml BalanceBalance 750 ml 750 ml Exam GENERAL: VITAL SIGNS: per chart NECK: Supple. No JVD or lymphadenopathy. CARDIAC EXAM: S1, S2. No added sounds or murmurs. CHEST: clear bilaterally, No added sounds, rales or wheezes ABDOMEN: Soft, nontender. No guarding or rebound. EXTREMITIES: No cyanosis, clubbing or edema. NEUROLOGIC: Generalized weakness. No focal deficits. Chronically ill- appearing lady comfortable at rest no acute distress Vent Setting Ventilator Support Mode: AC Fraction of Inspired Oxygen pe: 40 Positive End Expiratory Pressu: 5.0 Results/Medications Result Diagram: 11/26/18 0506 11/26/18 0506 Results 24 hrs Laboratory Tests Test 11/25/18 17:40 11/25/18 23:52 11/26/18 05:06 11/26/18 06:23 Bedside Glucose 102 103 115 White Blood Count 10.3 Red Blood Count 3.03 L Hemoglobin 9.4 L Hematocrit 31.3 L Mean Corpuscular 103.3 H Volume Mean Corpuscular 31.0 Hemoglobin Mean Corpuscular 30.0 L Hemoglobin Concent Red Cell 13.6 Distribution Width Platelet Count 308 Mean Platelet Volume 10.4 Immature 0.600 H Granulocytes % Neutrophils % 82.8 H Lymphocytes % 8.9 L Monocytes % 5.7 Eosinophils % 1.6 Basophils % 0.4 Nucleated Red Blood 0.0 Cells % Immature 0.060 H Granulocytes # Neutrophils # 8.5 H Lymphocytes # 0.9 Monocytes # 0.6 Eosinophils # 0.2 Basophils # 0.0 Nucleated Red Blood 0.0 Cells # Sodium Level 142 Potassium Level 3.7 Chloride Level 98 Carbon Dioxide Level 39 H Anion Gap 5 Blood Urea Nitrogen 21 H Creatinine 0.51 Glucose Level 99 Calcium Level 8.7 Phosphorus Level 3.0 Magnesium Level 2.3 Albumin 2.9 L Test 11/26/18 11:53 Bedside Glucose 112 Medications Current Medications IV Flush (NS 3 ml) 3 ml PER PROTOCOL IV ; Start 11/20/18 at 01:30 Acetaminophen (Tylenol Supp) 650 mg Q6H PRN [place] .PAIN 1-3 OR TEMP; Start 11/20/18 at 01:30 Albuterol/ Ipratropium (Duoneb) 3 ml Q2H RESP THERAPY PRN HHN SHORTNESS OF BREATH Last administered on 11/26/18 14:00; Admin Dose 3 ML; Start 11/20/18 at 01:30 Budesonide (Pulmicort (Neb)) 0.5 mg Q12 INH Last administered on 11/26/18 07:16; Admin Dose 0.5 MG; Start 11/20/18 at 09:00 Lansoprazole (Prevacid) 30 mg DAILY@0600 GTB Last administered on 11/26/18 06:22; Admin Dose 30 MG; Start 11/20/18 at 09:00 Cefepime HCl 50 ml @ 100 mls/hr Q12 IVPB Last administered on 11/26/18 08:33; Admin Dose 100 MLS/HR; Start 11/20/18 at 09:00 Miscellaneous Information 1 ea NOTE XX ; Start 11/20/18 at 09:00 Ondansetron HCl (Zofran Inj) 4 mg Q4 PRN IV NAUSEA/VOMITING Last administered on 11/21/18 09:11; Admin Dose 4 MG; Start 11/20/18 at 16:30 Guaifenesin/ Dextromethorphan (Robitussin Dm Liquid Cup) 10 ml Q4 PRN PO COUGH; Start 11/20/18 at 16:30 Ipratropium [place] (Atrovent 0.02% (Neb)) 0.5 mg Q8H RESP THERAPY HHN Last administered on 11/26/18 15:48; Admin Dose 0.5 MG; Start 11/21/18 at 00:00 Gabapentin (Neurontin) 600 mg BID GTB Last administered on 11/26/18 08:34; Admin Dose 600 MG; Start 11/20/18 at 21:00 Glycopyrrolate (Robinul) 1 mg BID WITH MEALS GTB Last administered on 11/26/18 08:34; Admin Dose 1 MG; Start 11/20/18 at 19:00 Montelukast Sodium (Singulair) 10 mg QHS GTB Last administered on 11/25/18 21:07; Admin Dose 10 MG; Start 11/20/18 at 21:00 Sertraline HCl (Zoloft) 25 mg DAILY GTB Last administered on 11/26/18 08:35; Admin Dose 25 MG; Start 11/21/18 at 09:00 Zinc Oxide (Zinc Oxide Oint) 1 applic DAILY TOP Last administered on 11/26/18 08:35; Admin Dose 1 APPLIC; Start 11/21/18 at 09:00 Enoxaparin Sodium (Lovenox) 40 mg DAILY SC Last administered on 11/26/18 08:56; Admin Dose 40 MG; Start 11/22/18 at 09:00 Metoprolol Tartrate (Lopressor) 12.5 mg TID GTB Last administered on 11/26/18 13:52; Admin Dose 12.5 MG; Start 11/22/18 at 09:00 Buspirone HCl (Buspar) 15 mg TID PRN GTB ANXIETY Last administered on 11/26/18 11:09; Admin Dose 15 MG; Start 11/23/18 at 11:00 Nystatin (Nystatin Powder) 1 applic BID TOP Last administered on 11/26/18 08:36; Admin Dose 1 APPLIC; Start 11/25/18 at 21:00 Assessment/Plan Hospital Course (Demo Recall) Assessment 1. Vent dependent respiratory failure 2. Status post VATS resection by pneumothorax 3. Significant anxiety disorder Plan 1. Continue mechanical ventilation 2. Continue tube feeding as tolerated 3. Anticip[facility] November 26, 2018 16:00
[2018-11-26] MEDS: MONTELUKAST 10 MG TAB GTB SCH (20:51)
[2018-11-27] VITALS (23 sets, daily range): BP systolic 114–137; BP diastolic 63–81; PULSE 72–103; RESP 17–25
[2018-11-27] MEDS: BUSPIRONE 10 MG TAB GTB PRN ×3 (02:33→18:33)
[2018-11-27] MEDS: ALBUTEROL/IPRATROPIUM (NEB) 3 ML AMP HHN PRN ×5 (03:18→22:16)
[2018-11-27] MEDS: LANSOPRAZOLE 30 MG CAP GTB SCH (06:46)
[2018-11-27] MEDS: IPRATROPIUM (NEB) 0.5 MG/2.5 ML AMP HHN SCH ×2 (07:53→16:43)
[2018-11-27] MEDS: BUDESONIDE (NEB) 0.5MG/2ML AMP INH SCH ×2 (09:38→19:23)
[2018-11-27] MEDS: SERTRALINE 50 MG TAB GTB SCH (09:53)
[2018-11-27] MEDS: CEFEPIME 1GM/50 ML (PMX) 50 ML IVPB SCH ×2 (09:53→21:44)
[2018-11-27] MEDS: GLYCOPYRROLATE 1 MG TAB GTB SCH ×2 (09:53→17:32)
[2018-11-27] MEDS: ZINC OXIDE 20% 30 GM OINT TOP SCH (09:54)
[2018-11-27] MEDS: NYSTATIN 30 GM POWDER BTL TOP SCH ×2 (09:54→21:48)
[2018-11-27] MEDS: GABAPENTIN 300 MG CAP GTB SCH ×2 (09:54→21:45)
[2018-11-27] MEDS: METOPROLOL 25 MG TAB GTB SCH ×3 (09:54→21:48)
[2018-11-27] MEDS: ENOXAPARIN 40 MG/0.4 ML SYG SC SCH (09:56)
--- NOTE | 2018-11-27 10:34 | PN ---
Date/Time of Note Date/Time of Note DATE: 11/27/18 TIME: 10:31 Assessment/Plan VTE Prophylaxis Risk score (from Ns)>0 risk: 7 SCD applied (from Ns): Yes Pharmacological prophylaxis: LMWH Lines/Catheters IV Catheter Type (from Nrsg): Saline Lock Assessment/Plan Assessment/Plan 1. Acute on chronic respiratory failure, vent dependent- improving - patient doing well on 40% FIO@ - Pulmonology on board and appreciate recommendations - nebs PRN - completely course of antibiotics 2. h/o recent pneumothorax status post VATS procedure 3. Chronic chest wall wound - wound care consultation appreciated 4. Chronic COPD - IV antibiotics and Nebs on board 5. Type 2 diabetes - A1c noted 6. Hypertension - stable 7. Dysphagia - speech evaluation appreciated - continue tube feeds 8. Bronchopleural fistula s/p surgery 9. Anxiety - continue on Buspar 10. Disposition - Medically stable for discharge to SNF Result Diagram: 11/26/18 0506 11/26/18 0506 Results 24hrs Laboratory Tests Test 11/26/18 11:53 Bedside Glucose 112 Subjective 24 Hr Interval Summary Free Text/Dictation Patient doing well on 40% FIO2 but appears anxious. Asking for her buspar. Exam/Review of Systems Exam Vitals Vital Signs Date Temp Pulse Resp B/P (MAP) Pulse Ox O2 O2 Flow FiO2 Time Delivery Rate 11/27/18 Mechanical 09:11 Ventilator 11/27/18 93 08:48 11/27/18 24 100 40 07:50 11/27/18 98.9 118/63 07:28 (81) Intake and Output 11/26/18 11/26/18 11/27/18 1515:00 23:00 07:00 IntakeIntake Total 750 ml 750 ml 700 ml BalanceBalance 750 ml 750 ml 700 ml Exam General: Patient appears anxious. no respiratory distress Neck: Supple. trach in place Chest: Nontender, dressing right lateral chest wall Lungs: Clear to auscultation bilaterally, diminished, no wheezing or rhonchi Heart: Normal S1-S2, Regular rhythm and rate. No murmur, S3, or S4 Abdomen: Soft , nontender, nondistended , bowel sounds are present. No guarding no rebound tenderness Extremities: Normal to inspection, no edema no cyanosis Skin: no rashes or lesions Results Results 24hrs Laboratory Tests Test 11/26/18 11:53 Bedside Glucose 112 Medications Medication Current Medications IV Flush (NS 3 ml) 3 ml PER PROTOCOL IV ; Start 11/20/18 at 01:30 Acetaminophen (Tylenol Supp) 650 mg Q6H PRN [place] .PAIN 1-3 OR TEMP; Start 11/20/18 at 01:30 Albuterol/ Ipratropium (Duoneb) 3 ml Q2H RESP THERAPY PRN HHN SHORTNESS OF BREATH Last administered on 11/27/18 05:34; Admin Dose 3 ML; Start 11/20/18 at 01:30 Budesonide (Pulmicort (Neb)) 0.5 mg Q12 INH Last administered on 11/27/18 09:38; Admin Dose 0.5 MG; Start 11/20/18 at 09:00 Lansoprazole (Prevacid) 30 mg DAILY@0600 GTB Last administered on 11/27/18 06:46; Admin Dose 30 MG; Start 11/20/18 at 09:00 Cefepime HCl 50 ml @ 100 mls/hr Q12 IVPB Last administered on 11/27/18 09:53; Admin Dose 100 MLS/HR; Start 11/20/18 at 09:00 Miscellaneous Information 1 ea NOTE XX ; Start 11/20/18 at 09:00 Ondansetron HCl (Zofran Inj) 4 mg Q4 PRN IV NAUSEA/VOMITING Last administered on 11/21/18 09:11; Admin Dose 4 MG; Start 11/20/18 at 16:30 Guaifenesin/ Dextromethorphan (Robitussin Dm Liquid Cup) 10 ml Q4 PRN PO COUGH; Start 11/20/18 at 16:30 Ipratropium [place] (Atrovent 0.02% (Neb)) 0.5 mg Q8H RESP THERAPY HHN Last administered on 11/27/18 07:53; Admin Dose 0.5 MG; Start 11/21/18 at 00:00 Gabapentin (Neurontin) 600 mg BID GTB Last administered on 11/27/18 09:54; Admin Dose 600 MG; Start 11/20/18 at 21:00 Glycopyrrolate (Robinul) 1 mg BID WITH MEALS GTB Last administered on 11/27/18 09:53; Admin Dose 1 MG; Start 11/20/18 at 19:00 Montelukast Sodium (Singulair) 10 mg QHS GTB Last administered on 11/26/18 20:51; Admin Dose 10 MG; Start 11/20/18 at 21:00 Sertraline HCl (Zoloft) 25 mg DAILY GTB Last administered on 11/27/18 09:53; Admin Dose 25 MG; Start 11/21/18 at 09:00 Zinc Oxide (Zinc Oxide Oint) 1 applic DAILY TOP Last administered on 11/27/18 09:54; Admin Dose 1 APPLIC; Start 11/21/18 at 09:00 Enoxaparin Sodium (Lovenox) 40 mg DAILY SC Last administered on 11/27/18 09:56; Admin Dose 40 MG; Start 11/22/18 at 09:00 Metoprolol Tartrate (Lopressor) 12.5 mg TID GTB Last administered on 11/27/18 09:54; Admin Dose 12.5 MG; Start 11/22/18 at 09:00 Buspirone HCl (Buspar) 15 mg TID PRN GTB ANXIETY Last administered on 11/27/18 09:53; Admin Dose 15 MG; Start 11/23/18 at 11:00 Nystatin (Nystatin Powder) 1 applic BID TOP Last administered on 11/27/18 09:54; Admin Dose 1 APPLIC; Start 11/25/18 at 21:00 ELOY GEE MD Nov 27, 2018 10:34
--- NOTE | 2018-11-27 10:42 | PDOCDIS ---
Discharge Instructions DIAGNOSIS Discharge Diagnosis 1. Acute on chronic respiratory failure, vent dependent 2. h/o recent pneumothorax status post VATS procedure 3. Chronic chest wall wound 4. Chronic COPD 5. Type 2 diabetes 6. Hypertension 7. Dysphagia 8. Bronchopleural fistula s/p surgery 9. Anxiety CONDITION [id number] Patient Condition: [id number] Stable HOME CARE INSTRUCTIONS: [id number] Diet Instructions: [id number] Low Fat /Cholesterol FOLLOW UP/APPOINTMENTS Follow-up Plan 1. Follow up with your primary care physician in 1-2 weeks 2. Take all medications as prescribed 3. Continue local wound care to chest wound 4. You will continue with respiratory therapy in attempts to wean you off the vent. 5. If experiencing any concerning issues, please return to the closest emergency department ELOY GEE MD Nov 27, 2018 10:42
--- NOTE | 2018-11-27 15:12 | CONS ---
Consult Date/Type/Reason Admit Date/Time November 19, 2018 at 23:35 Initial Consult Date 11/21/18 Type of Consultation: Pulm Date/Time of Note DATE: 11/27/18 TIME: 15:11 Subjective No events. Objective Vitals Vital Signs Date Temp Pulse Resp B/P (MAP) Pulse Ox O2 O2 Flow FiO2 Time Delivery Rate 11/27/18 Mechanical 13:26 Ventilator 11/27/18 40 13:20 11/27/18 86 25 100 13:00 11/27/18 98.2 135/81 11:00 (99) Intake and Output 11/26/18 11/26/18 11/27/18 1515:00 23:00 07:00 IntakeIntake Total 750 ml 750 ml 700 ml BalanceBalance 750 ml 750 ml 700 ml Exam NECK: Supple. No JVD or lymphadenopathy. CARDIAC EXAM: S1, S2. No added sounds or murmurs. CHEST: clear bilaterally, No added sounds, rales or wheezes ABDOMEN: Soft, nontender. No guarding or rebound. EXTREMITIES: No cyanosis, clubbing or edema. NEUROLOGIC: Generalized weakness. No focal deficits. Chronically ill- appearing lady comfortable at rest no acute distress Results/Medications Result Diagram: 11/26/18 0506 11/26/18 0506 Home Meds Reported Medications Insulin Regular, Human (Humulin R) 100 Unit/1 Ml Vial, 0 IJ SS, VIAL IF BS>400,GIVE SCHEDULED INSULIN CALL PRESCRIBER, IF <70 SEE HYPOGLYCEMIA PROTOCOL: IF BS 71-150=0 unit 151-200= 2units; 201-250=4 units; 251-300=6units; 301-350= 8units; 351-400= 10units; 11/20/18 Zinc Oxide* (Zinc Oxide*) 20%-30GM Oint, 1 APPLIC TOP DAILY, TUB 11/20/18 Sertraline Hcl* (Sertraline Hcl*) 50 Mg Tablet, 50 MG GTB DAILY, #30 TAB 11/20/18 Sertraline Hcl* (Sertraline Hcl*) 25 Mg Tablet, 25 MG GTB DAILY, #30 TAB 11/20/18 Multivitamins* (Theragran*) 1 Tab Tab, 1 TAB GTB DAILY, TAB 11/20/18 Montelukast Sodium* (Montelukast Sodium*) 10 Mg Tablet, 10 MG GTB QHS, #30 TAB 11/20/18 Metoprolol Tartrate* (Lopressor*) 25 Mg Tab, 12.5 MG GTB TID, #60 TAB HOLD SBP<110 OR HR<60, 11/20/18 Metoclopramide* (Reglan*) 10 Mg Tablet, 10 MG GTB TID, TAB 11/20/18 Melatonin/Pyridoxine (Melatonin 5 mg Tablet) 1 Each Tablet, 1 EACH GTB, TAB 11/20/18 Lansoprazole* (Lansoprazole*) 30 Mg Capsule.dr, 30 MG GTB DAILY, CAP 11/20/18 Ipratropium-Albuterol (Ipratropium-Albuterol) 0.5-3 Mg/3 Ml Ampul.neb, 3 ML INHALATION Q6, #30 VIAL 11/20/18 Guaifenesin/Dextromethorphan* (Guaifenesin* DM) 1 Each Tablet, 1 TAB GTB Q12, TAB.SA 11/20/18 Glycopyrrolate* (Glycopyrrolate*) 1 Mg Tablet, 1 MG GTB BID WITH MEALS, TAB 11/20/18 Gabapentin* (Gabapentin*) 600 Mg Tablet, 600 MG GTB BID, #60 TAB 11/20/18 Ferrous Sulfate* (Ferrous Sulfate*) 325 Mg Tabec, 325 MG GTB TID, TAB 11/20/18 Chlorhexidine Gluconate* (Chlorhexidine Gluconate*) 118 Ml Liquid, 15 ML TOP Q12H, ML 11/20/18 Buspirone Hcl* (Buspirone Hcl*) 10 Mg Tab, 10 MG GTB BID PRN for TID, TAB 11/20/18 Budesonide* (Budesonide*) 0.5 Mg/2 Ml Ampul.neb, 0.5 MG INHALATION Q12, AMP 11/20/18 Acetaminophen-Codeine* (Acetaminophen-Codeine*) 300-30 Mg/12.5 Ml Solution, 12.5 ML PO Q4H PRN for PAIN, ML 11/20/18 Acetaminophen* (Acetaminophen* Susp) 325 Mg/10.15 Ml Solution, 650 MG GTB Q6H for FOR WOUND CARE, ML 11/20/18 Medications Current Medications IV Flush (NS 3 ml) 3 ml PER PROTOCOL IV ; Start 11/20/18 at 01:30 Acetaminophen (Tylenol Supp) 650 mg Q6H PRN [place] .PAIN 1-3 OR TEMP; Start 11/20/18 at 01:30 Albuterol/ Ipratropium (Duoneb) 3 ml Q2H RESP THERAPY PRN HHN SHORTNESS OF BREATH Last administered on 11/27/18 11:04; Admin Dose 3 ML; Start 11/20/18 at 01:30 Budesonide (Pulmicort (Neb)) 0.5 mg Q12 INH Last administered on 11/27/18 09:38; Admin Dose 0.5 MG; Start 11/20/18 at 09:00 Lansoprazole (Prevacid) 30 mg DAILY@0600 GTB Last administered on 11/27/18 06:46; Admin Dose 30 MG; Start 11/20/18 at 09:00 Cefepime HCl 50 ml @ 100 mls/hr Q12 IVPB Last administered on 11/27/18 09:53; Admin Dose 100 MLS/HR; Start 11/20/18 at 09:00 Miscellaneous Information 1 ea NOTE XX ; Start 11/20/18 at 09:00 Ondansetron HCl (Zofran Inj) 4 mg Q4 PRN IV NAUSEA/VOMITING Last administered on 11/21/18 09:11; Admin Dose 4 MG; Start 11/20/18 at 16:30 Guaifenesin/ Dextromethorphan (Robitussin Dm Liquid Cup) 10 ml Q4 PRN PO COUGH; Start 11/20/18 at 16:30 Ipratropium [place] (Atrovent 0.02% (Neb)) 0.5 mg Q8H RESP THERAPY HHN Last administered on 11/27/18 07:53; Admin Dose 0.5 MG; Start 11/21/18 at 00:00 Gabapentin (Neurontin) 600 mg BID GTB Last administered on 11/27/18 09:54; Admin Dose 600 MG; Start 11/20/18 at 21:00 Glycopyrrolate (Robinul) 1 mg BID WITH MEALS GTB Last administered on 11/27/18 09:53; Admin Dose 1 MG; Start 11/20/18 at 19:00 Montelukast Sodium (Singulair) 10 mg QHS GTB Last administered on 11/26/18 20:51; Admin Dose 10 MG; Start 11/20/18 at 21:00 Sertraline HCl (Zoloft) 25 mg DAILY GTB Last administered on 11/27/18 09:53; Admin Dose 25 MG; Start 11/21/18 at 09:00 Zinc Oxide (Zinc Oxide Oint) 1 applic DAILY TOP Last administered on 11/27/18 09:54; Admin Dose 1 APPLIC; Start 11/21/18 at 09:00 Enoxaparin Sodium (Lovenox) 40 mg DAILY SC Last administered on 11/27/18 09:56; Admin Dose 40 MG; Start 11/22/18 at 09:00 Metoprolol Tartrate (Lopressor) 12.5 mg TID GTB Last administered on 11/27/18 12:11; Admin Dose 12.5 MG; Start 11/22/18 at 09:00 Buspirone HCl (Buspar) 15 mg TID PRN GTB ANXIETY Last administered on 11/27/18 09:53; Admin Dose 15 MG; Start 11/23/18 at 11:00 Nystatin (Nystatin Powder) 1 applic BID TOP Last administered on 11/27/18 09:54; Admin Dose 1 APPLIC; Start 11/25/18 at 21:00 Assessment/Plan Assessment/Plan (Daily) IMP: 1. Vent dependent respiratory failure 2. SSP--Status post VATS resection 3. Significant anxiety disorder RECS: 1. Vent support 2. d//C SNF CHU ORTIZ MD Nov 27, 2018 15:12
--- NOTE | 2018-11-27 16:53 | DS ---
Date/Time of Note Date/Time of Note DATE: 11/27/18 TIME: 16:48 Discharge Summary Admission/Discharge Info Admit Date/Time November 19, 2018 at 23:35 Discharge Date/Time 11/27/18 Discharge Diagnosis 1. Acute on chronic respiratory failure, vent dependent 2. h/o recent pneumothorax status post VATS procedure 3. Chronic chest wall wound 4. Chronic COPD 5. Type 2 diabetes 6. Hypertension 7. Dysphagia 8. Bronchopleural fistula s/p surgery 9. Anxiety Patient Condition: Stable Consults Pulmonology- Dr. Francisco/Matt Deal of Present Illness This is a 63-year-old female with history of COPD, depression, lung surgery/VATS (per patient for pneumothorax), trach/vent dependent, G-tube placement who was brought to the ER from SNF for hypoxia. Patient just got discharged from [facility] and when she got to SNF she was found to be hypoxic. Per EMS, oxygen saturation in the low 80s. She was brought to the ER with BVM by EMS. In the ER, ABG on 100% FiO2 shows a pH of 7.35, PCO2 86, PO2 310, bicarb 46. Chest x-ray shows right medial/lower chest resection with lung herniation, right apical pneumothorax, possibly chronic, diffuse interstitial opacity. Patient had a breathing treatment and antibiotic and repeat ABG shows a slight improvement in PCO2. PO2 102, but on 60% FiO2 as supposed to 100%. Patient appears somewhat anxious. She answers questions appropriately, but requires reading her lips. She said that she had surgery for pneumothorax a year ago and has been trach dependent since. She also stated that BuSpar is what works for her for anxiety Hospital Course Patient was admitted to telemetry for treatment of acute hypoxia. She was seen by Pulmonology for ventilator management. She was started on IV antibiotics for treatment of HCAP. Wound care was continued to chronic open wound at site of VATS procedure. Patient was also noted with significant anxiety and Buspar was adjusted for better controlled. Patient continued IV antibiotics and FIO2 was weaned down based on tolerance. Patient was able to tolerate 40% FIO2 without any respiratory complaints. Patient completed a 7 day course of IV antibiotics and remained afebrile. Patients presenting symptoms improved and she was discharged to SNF in stable condition. Home Meds Reported Medications Insulin Regular, Human (Humulin R) 100 Unit/1 Ml Vial, 0 IJ SS, VIAL IF BS>400,GIVE SCHEDULED INSULIN CALL PRESCRIBER, IF <70 SEE HYPOGLYCEMIA PROTOCOL: IF BS 71-150=0 unit 151-200= 2units; 201-250=4 units; 251-300=6units; 301-350= 8units; 351-400= 10units; 11/20/18 Zinc Oxide* (Zinc Oxide*) 20%-30GM Oint, 1 APPLIC TOP DAILY, TUB 11/20/18 Sertraline Hcl* (Sertraline Hcl*) 50 Mg Tablet, 50 MG GTB DAILY, #30 TAB 11/20/18 Sertraline Hcl* (Sertraline Hcl*) 25 Mg Tablet, 25 MG GTB DAILY, #30 TAB 11/20/18 Multivitamins* (Theragran*) 1 Tab Tab, 1 TAB GTB DAILY, TAB 11/20/18 Montelukast Sodium* (Montelukast Sodium*) 10 Mg Tablet, 10 MG GTB QHS, #30 TAB 11/20/18 Metoprolol Tartrate* (Lopressor*) 25 Mg Tab, 12.5 MG GTB TID, #60 TAB HOLD SBP<110 OR HR<60, 11/20/18 Metoclopramide* (Reglan*) 10 Mg Tablet, 10 MG GTB TID, TAB 11/20/18 Melatonin/Pyridoxine (Melatonin 5 mg Tablet) 1 Each Tablet, 1 EACH GTB, TAB 11/20/18 Lansoprazole* (Lansoprazole*) 30 Mg Capsule.dr, 30 MG GTB DAILY, CAP 11/20/18 Ipratropium-Albuterol (Ipratropium-Albuterol) 0.5-3 Mg/3 Ml Ampul.neb, 3 ML INHALATION Q6, #30 VIAL 11/20/18 Guaifenesin/Dextromethorphan* (Guaifenesin* DM) 1 Each Tablet, 1 TAB GTB Q12, TAB.SA 11/20/18 Glycopyrrolate* (Glycopyrrolate*) 1 Mg Tablet, 1 MG GTB BID WITH MEALS, TAB 11/20/18 Gabapentin* (Gabapentin*) 600 Mg Tablet, 600 MG GTB BID, #60 TAB 11/20/18 Ferrous Sulfate* (Ferrous Sulfate*) 325 Mg Tabec, 325 MG GTB TID, TAB 11/20/18 Chlorhexidine Gluconate* (Chlorhexidine Gluconate*) 118 Ml Liquid, 15 ML TOP Q12H, ML 11/20/18 Buspirone Hcl* (Buspirone Hcl*) 10 Mg Tab, 10 MG GTB BID PRN for TID, TAB 11/20/18 Budesonide* (Budesonide*) 0.5 Mg/2 Ml Ampul.neb, 0.5 MG INHALATION Q12, AMP 11/20/18 Acetaminophen-Codeine* (Acetaminophen-Codeine*) 300-30 Mg/12.5 Ml Solution, 12.5 ML PO Q4H PRN for PAIN, ML 11/20/18 Acetaminophen* (Acetaminophen* Susp) 325 Mg/10.15 Ml Solution, 650 MG GTB Q6H for FOR WOUND CARE, ML 11/20/18 Follow-up Plan 1. Follow up with your primary care physician in 1-2 weeks 2. Take all medications as prescribed 3. Continue local wound care to chest wound 4. You will continue with respiratory therapy in attempts to wean you off the vent. 5. If experiencing any concerning issues, please return to the closest emergency department Primary Care Provider Care Physician No Primary Time spent on discharge: > 30 minutes ELOY GEE MD Nov 27, 2018 16:53
[2018-11-27] MEDS: MONTELUKAST 10 MG TAB GTB SCH (21:45)
== END 2018-11-27 22:55 | DRG 207 ==
LOC: E/R 21:15 → 6WM 23:35 → EDBEDREQ 11-20 00:06 → E/R 11-20 15:44
PROVIDERS: ADMIT Internal Medicine; ATTEND Internal Medicine
PROC: 5A1955Z Respiratory Ventilation, Greater than 96 Consecutive Hours (ICD-10-PCS; principal; 2018-11-19)
DX: J96.21 Acute and chronic respiratory failure with hypoxia (principal); J18.9 Pneumonia, unspecified organism; Z99.11 Dependence on respirator [ventilator] status; Z68.1 Body mass index [BMI] 19.9 or less, adult; E44.0 Moderate protein-calorie malnutrition; J96.22 Acute and chronic respiratory failure with hypercapnia; R13.10 Dysphagia, unspecified; F32.9 Major depressive disorder, single episode, unspecified; I10 Essential (primary) hypertension; F41.9 Anxiety disorder, unspecified; T81.89XA Other complications of procedures, not elsewhere classified, initial encounter; J43.9 Emphysema, unspecified; E11.40 Type 2 diabetes mellitus with diabetic neuropathy, unspecified; D64.9 Anemia, unspecified; R53.81 Other malaise; Z93.0 Tracheostomy status; Z79.4 Long term (current) use of insulin
CPT/HCPCS: 36415; 36600; 71045; 71250; 80048; 80053; 80069; 80076; 80202; 81001; 82270; 82306; 82607; 82746; 82803; 82962; 83036; 83605; 83735; 84100; 84145; 84443; 84484; 85025; 85610; 85730; 87081; 87086; 92526; 92610; 93005; 93306; 93970; 94002; 94003; 94640; 94664; 96374; J0692; J1644; J1650; J1815; J2405; J3370; J7030; J7042